=== PATIENT | male | born 1950 | race Caucasian/White ===

== ENCOUNTER 2016-12-26 06:29 | Day surgery (SDC) | payer MEDICARE, OTHER ==
[2016-12-23 12:10] VITALS: BMI 34.7
[~2016-12-26 06:29] MED LIST: ALPRAZolam 0.25 MG TAB PO PRN; ALPRAZolam 0.5 MG TAB PO PRN; ASPIRIN 325 MG TAB PO ONE; SODIUM CHLORIDE 0.9% 1,000 ML in EMPTY BAG 1 BAG IV ONE
[2016-12-26 07:16] VITALS: RESP 16; TEMP 98
[2016-12-26 07:28] LABS: Basophils # (A) 0.1 k/uL (0-0.2); Basophils % (A) 2 %; CH 32.3; CHCM 35.3; Eosinophils # (A) 0.3 k/uL (0-0.7); Eosinophils % (A) 7 %; HCT 44.6 % (39.0-53.0); HGB 15.2 gm/dL (13.0-17.5); Luc # (Auto) 0.18; Luc % (Auto) 4; Lymphocytes # (A) 1.3 k/uL (1.0-4.8); Lymphocytes % (A) 32 %; MCH 31.3 pg (25.0-35.0); Mean Platelet Volume 6.6; Monocytes # (A) 0.4 k/uL (0-1.0); Monocytes % (A) 8 %; Neutrophils % (A) 47 %; RBC 4.85 m/uL (4.30-5.90); RDW 14.2 % (11.5-15.5); WBC 4.3 k/uL (3.8-10.6)
[2016-12-26] MEDS ORDERED: MIDAZOLAM 2 MG/2 ML VIAL IVP ONE (07:32)
[2016-12-26] MEDS ORDERED: LIDOCAINE 2% INJ 20 MG/ML SQ ONE (07:35)
[2016-12-26] MEDS: VERAPAMIL SYRINGE (5 MG/10 ML) INTRAARTER ONE ×2 (07:37→07:50)
[2016-12-26] MEDS ORDERED: HEPARIN SODIUM 1,000 UNIT/ML VIAL IV ONE (07:38)
[2016-12-26] MEDS ORDERED: IOHEXOL 350 MG/ML 125ML BOTTLE INJ ONE (07:49)
[2016-12-26 07:51] LABS: Anion Gap 7 mmol/L; Blood Urea Nitrogen 23 mg/dL (9-20); Carbon Dioxide 27 mmol/L (22-30); Chloride 108 mmol/L (98-107); Glucose 101 mg/dL (74-99); Non-African American GFR(MDRD) >60 (>60 ml/min/1.73 sqM); Potassium 4.2 mmol/L (3.5-5.1); Sodium 142 mmol/L (137-145)
[2016-12-26] MEDS ORDERED: RX INFO: IV CONTRAST WAS GIVEN 1 EACH MISC MISCELLANE PRN (08:01)
[2016-12-26] MEDS ORDERED: SODIUM CHLORIDE 0.9% 1,000 ML IV SCH (08:15)
[2016-12-26 12:01] VITALS: BP 112/61; PULSE 62
--- NOTE | 2016-12-26 13:53 | LTR ---
December 26, 2016 RE: Soto Callahan Dear Mohsen; MrChristian Callahna underwent a heart catheterization that showed mild nonobstructive coronary artery disease involving the proximal right coronary artery. I want to thank you for allowing me to participate in his care and please do not hesitate to call if you have any questions or concerns. Sincerely, KISHOR RIOS MD
--- NOTE | 2016-12-26 13:55 | CC ---
DATE OF SERVICE: December 26, 2016 Performing physician: Mohsen Jaramillo fleecer. PROCEDURE PERFORMED: Selective right and left coronary angiogram. INDICATION: This is a very pleasant 60-year-old gentleman who sees Dr. Escamilla as an outpatient, who underwent recently a myocardial perfusion imaging stress test for chest discomfort and that showed inferolateral ischemia. He was brought today to undergo a heart catheterization to rule out any to rule out any severe underlying CAD. Approach: Right radial artery. COMPLICATIONS: None. Level of sedation: Moderate with sedation length of about 30 minutes. PROCEDURE DESCRIPTION: After obtaining an informed consent, the patient was brought to the cardiac chemical laboratory tester. Right radial artery was cannulated using micropuncture technique. The micropuncture wire passed easily, then I placed a 6 Nigerien sheath in the right radial artery. Subsequently, I gave the patient 2 mg of verapamil IA and 3000 units of heparin IV. After that, I did selective right and left coronary angiogram using JR4 and JL 3.5 catheters which where both catheters were 5 Nigerien. I attempted crossing the aortic valve using 5 Nigerien pigtail catheter but I was unable, so I decided not to continue at that point. SELECTIVE CORONARY ANGIOGRAM: 1. The right coronary artery is a large-caliber vessel and it is a dominant vessel. Right coronary artery in the proximal portion has mild disease only in the range of 20% to 30%. In the mid and distal portion are angiographically normal. 2. The left main is angiographically normal and bifurcates into the left circumflex and left anterior descending artery. 3. Left circumflex is a large-caliber vessel. It is a nondominant vessel. The proximal left circumflex is angiographically normal. The mid left circumflex is normal and gives rises into the first and second obtuse marginal branches and both are angiographically normal. Then the circ continues after that as ( ). 4. Left anterior descending artery. The proximal LAD appeared to be angiographically normal. The mid LAD and distal LAD are both are angiographically normal. The LAD gives rises into 2 diagonal branches; in the midportion and both are angiographically normal. CONCLUSION: Mild nonobstructive coronary artery disease involving the proximal right coronary artery. POSTPROCEDURE MANAGEMENT: Medical treatment.
== END 2016-12-26 13:08 | disposition home or self-care (01) ==
LOC: CATHCVL 06:29
PROVIDERS: ATTEND Internal Medicine Interventional Cardiology
DX: I25.10 Atherosclerotic heart disease of native coronary artery without angina pectoris (principal); I48.0 Paroxysmal atrial fibrillation; I10 Essential (primary) hypertension; E78.5 Hyperlipidemia, unspecified; Z79.01 Long term (current) use of anticoagulants; Z79.899 Other long term (current) drug therapy; Z82.49 Family history of ischemic heart disease and other diseases of the circulatory system; Z88.8 Allergy status to other drugs, medicaments and biological substances; Z87.891 Personal history of nicotine dependence
CPT/HCPCS: 93454; 99152; 80048; 85025; J2001; J2250; J1644; Q9967

== ENCOUNTER → 2017-01-08 | Outpatient (CLI) | payer MEDICARE ==
--- NOTE | 2017-01-08 17:36 | PN ---
DATE OF SERVICE: 01/08/2017 66-year-old gentleman who has been followed in the sleep center for treatment of obstructive sleep apnea-hypopnea syndrome in severe range. Patient continues to use his CPAP equipment without any significant problem with nasal pillow mask AirFit P10. Feels comfortable with this mask. No snoring with the machine. No problem with his sleep. [place] Sleepiness Scale today is 8. Presently, patient is on cardiac monitoring for possible returning of atrial fibrillation. Patient brought his CPAP unit. I checked CPAP machine. CPAP pressure is 12 cm of water. Patient demonstrated very good compliance with treatment 23 out of 30 more than 4 hours. Apnea-hypopnea index for the last month is only 1.0, which is totally normal, range. Leak is up to 29 L/min, which is in high range, but acceptable. MEDICATIONS: Metoprolol, losartan, atorvastatin, omeprazole, Mirapex, clonazepam 1 mg at bedtime, Ultram, Lidoderm, Xarelto, furosemide, fluoxetine, doxycycline. During physical exam, the patient in no distress. VITAL SIGNS: BP 114/62, HR 54, RR 16. Height 5 feet 8, weight 242, body mass index 36.7. Temperature 97.6. Oxygen saturation at room air 95%. HEENT: PERRLA, EOMI. Evaluation of oropharynx showed extremely low position of soft palate. NECK: Supple. No JVD, Thyroid is not palpable. LUNGS: Clear to percussion and to auscultation. Good air exchange. No wheezing or rhonchi. HEART: S1, S2 regular. No murmurs, gallops, or rubs. ABDOMEN: Slightly obese. Soft and nontender. Bowel sounds are present. No organomegaly appreciated. 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 Cranial nerves 2 to 7 intact. There is no fasciculation or atrophy noted. No focal deficits observed. EXTREMITIES: Minimal 1+ bilateral ankle edema. IMPRESSION: 1. Severe obstructive sleep apnea/hypopnea syndrome on control with CPAP at 12 cm of water. Patient demonstrated good compliance with treatment benefiting from treatment. 2. Obesity; body mass index 36.7. Patient lost about 7 pounds off his weight since previous visit. 3. History of atrial fibrillation status post cardiac ablation. 4. History of depression. 5. History of restless leg syndrome. 6. Status post uvulopalatopharyngoplasty and nasal surgery for obstructive sleep apnea. 7. Status post several surgeries for right and left shoulders. 8. Some fracture of right foot and torn meniscus in 2013. 9. Status post total left knee replacement surgery for right carpal tunnel syndrome. 10. Back surgery on level L3 to S1 with spinal stenosis. 11. Status post left carotid endarterectomy. PLAN: 1. Continue treatment with CPAP with the same regimen. 2. Patient should replace his headgear for his nasal pillow mask as often as possible. I would recommend not rarely than once per 4 months. 3. Continue losing weight. 4. Sleep hygiene with regular time in bed for at least 8 hours. 5. No driving if feeling any sleepiness. 6. Prescription for all necessary CPAP supplies. Thank you very much for allowing me to participate in the management of your patient. Sincerely, Isac Farfan MD, PhD, FAASM Diplomat of [place] [employer], Sleep Medicine Board by [place] [employer] [place] [employer] Data Manager of [facility] [place]
== END | disposition home or self-care (01) ==
LOC: SLEEP 14:02
PROVIDERS: ATTEND Internal Medicine
DX: G47.33 Obstructive sleep apnea (adult) (pediatric) (principal); E66.9 Obesity, unspecified; Z68.36 Body mass index [BMI] 36.0-36.9, adult; I48.91 Unspecified atrial fibrillation; F32.9 Major depressive disorder, single episode, unspecified; Z98.890 Other specified postprocedural states; Z79.899 Other long term (current) drug therapy; Z79.01 Long term (current) use of anticoagulants

== ENCOUNTER → 2017-11-10 | Outpatient (CLI) | payer MEDICARE, OTHER ==
--- NOTE | 2017-11-10 09:49 | CT ---
EXAMINATION TYPE: CT chest wo con DATE OF EXAM: 11/10/2017 COMPARISON: NONE HISTORY: Dyspnea CT DLP: 1324.00 mGycm High-resolution noncontrast CT of the chest was performed with the patient in the prone and supine po sitions. Lung and mediastinal window settings are submitted. The lungs appear to be well-aerated. I do not see evidence for fibrotic change. There is no eviden ce for bronchiectasis, groundglass infiltrate, nodule or mass. No pleural effusion is identified. I do not see evidence for hilar or mediastinal mass or adenopathy. IMPRESSION: No significant abnormality is seen. Correlate clinically.
== END | disposition home or self-care (01) ==
LOC: RADCTMAIN 08:18
PROVIDERS: ATTEND Internal Medicine Critical Care Medicine
DX: R06.09 Other forms of dyspnea (principal)
CPT/HCPCS: 71250

== ENCOUNTER 2019-04-29 11:16 | Emergency (ER) | payer MEDICARE, OTHER ==
[2019-04-29] MEDS ORDERED: SODIUM CHLORIDE 0.9% IRRIG 1,000 ML BTL IRRIGATION ONE (11:57)
[2019-04-29] MEDS ORDERED: DIPH,PERTUS(ACELL)TETVAC-LF 0.5 ML VIAL IM ONE (11:57)
[2019-04-29] MEDS ORDERED: LIDOCAINE 1% INJ 10MG/ML (20 ML MDV) SQ ONE (11:57)
--- NOTE | 2019-04-29 12:24 | XR ---
EXAMINATION TYPE: XR ankle complete LT DATE OF EXAM: 04/29/2019 COMPARISON: NONE HISTORY: 68-year-old male anterior laceration, rule out foreign body TECHNIQUE: 3 views FINDINGS: Ankle mortise is congruent. No acute fracture, subluxation, or dislocation. Anterior soft tissue swel ling is noted. Some subtle curvilinear density anterior to the distal tibia favored to represent vasc ular calcification. Small plantar calcaneal spur. IMPRESSION: 1. Anterior soft tissue swelling. Some subtle linear density just in front of the distal tibia is fav ored to represent vascular calcification. Some minimal radiodense debris is difficult to entirely exc lude. 2. No acute osseous abnormality seen.
[2019-04-29] MEDS ORDERED: WATER FOR IRRIG, STERILE 1,000 ML BTL IRRIGATION ONE (12:59)
--- NOTE | 2019-04-29 13:11 | ED ---
General Adult HPI - General Chief complaint: Wound/Laceration Stated complaint: Laceration Time Seen by Provider: 04/29/19 11:37 Source: patient, RN notes reviewed Mode of arrival: ambulatory Limitations: no limitations - History of Present Illness Initial comments: 68-year-old male presents to the emergency department for laceration of the left ankle. Patient states he was getting off his lawnmower when some shital and cut his leg. Denies any difficulty walking on the leg. Denies any other injuries. Patient is not up-to-date on tetanus.Patient has no other complaints at this time including shortness of breath, chest pain, abdominal pain, nausea or vomiting, headache, or visual changes. - Related Data Home Medications Medication Instructions Recorded Confirmed Ascorbic Acid [Vitamin C] 500 mg PO HS 01/25/15 12/26/16 Calcium Carbonate/Vitamin D3 1 each PO BID 01/25/15 12/26/16 [Calcium 600-Vit D3 400 Tablet] FLUoxetine HCL 20 mg PO DAILY 01/25/15 12/26/16 Folic Acid 1 tab PO HS 01/25/15 12/26/16 Furosemide [Lasix] 20 mg PO DAILY 01/25/15 12/26/16 Lidocaine [Lidoderm 5% Patch] 1 patch TOPICAL DAILY 01/25/15 12/26/16 Losartan [Cozaar] 50 mg PO DAILY 01/25/15 12/26/16 Metoprolol Tartrate 100 mg PO BID 01/25/15 12/26/16 Multivitamins, Thera [Multivitamin 1 each PO DAILY 01/25/15 12/26/16 (formulary)] Omeprazole 40 mg PO DAILY 01/25/15 12/26/16 Pramipexole Di-HCl [Mirapex] 1.5 mg PO 1200 01/25/15 12/26/16 Pramipexole Di-HCl [Mirapex] 1.5 mg PO HS 01/25/15 12/26/16 Rivaroxaban [Xarelto] 20 mg PO W/SUPPER 01/25/15 12/23/16 Simvastatin [Zocor] 20 mg PO HS 01/25/15 12/26/16 Vitamin E (Dl,Tocopheryl Acet) 400 unit PO HS 01/25/15 12/26/16 [Vitamin E] clonazePAM [KlonoPIN] 1 mg PO HS 01/25/15 12/26/16 Doxycycline Hyclate 100 mg PO DAILY 12/23/16 12/26/16 traMADol HCl [Ultram] 50 mg PO BID 12/23/16 12/26/16 Clotrimazole/Betameth Cream 1 applic TOPICAL BID PRN 12/26/16 12/26/16 [Lotrisone] Allergies Allergy/AdvReac Type Severity Reaction Status Date / Time clindamycin Allergy Rash/Hives Verified 04/29/19 11:29 warfarin sodium Allergy Rash/Hives Verified 04/29/19 11:29 [From Coumadin] tape Allergy blister Uncoded 12/23/16 11:48 tegaderm Allergy blister Uncoded 12/23/16 11:48 Review of Systems ROS Statement: Those systems with pertinent positive or pertinent negative responses have been documented in the HPI. ROS Other: All systems not noted in ROS Statement are negative. Past Medical History Past Medical History: Atrial Fibrillation, CVA/TIA, GERD/Reflux, Hyperlipidemia, Hypertension, Osteoarthritis (OA), Sleep Apnea/CPAP/BIPAP Additional Past Medical History / Comment(s): TIA, can not lift hands up over head due to mult shoulder surgeries. History of Any Multi-Drug Resistant Organisms: MRSA Date of last positivie culture/infection: 07/14/14 MDRO Source:: rt shoulder Past Surgical History: Back Surgery, Cardiac Ablation, Joint Replacement, Orthopedic Surgery Additional Past Surgical History / Comment(s): Left knee replacement, bilateral knee arthroscopy, bilateral shoulder surgeries (total 25), jericho in back. Past Anesthesia/Blood Transfusion Reactions: No Reported Reaction Past Psychological History: No Psychological Hx Reported Smoking Status: Former smoker Past Alcohol Use History: None Reported Past Drug Use History: None Reported - Past Family History Mother Family Medical History: No Reported History General Exam Limitations: no limitations General appearance: alert, in no apparent distress Head exam: Present: atraumatic, normocephalic, normal inspection Eye exam: Present: normal appearance, PERRL, EOMI. Absent: scleral icterus, conjunctival injection, periorbital swelling ENT exam: Present: normal exam, mucous membranes moist Neck exam: Present: normal inspection, full ROM. Absent: tenderness, meningismus, lymphadenopathy Respiratory exam: Present: normal lung sounds bilaterally. Absent: respiratory distress, wheezes, rales, rhonchi, stridor Cardiovascular Exam: Present: regular rate, normal rhythm, normal heart sounds. Absent: systolic murmur, diastolic murmur, rubs, gallop, clicks Extremities exam: Present: full ROM (Full range motion of the left ankle.), normal capillary refill (Capillary very refill less than 2 seconds, DP pulse 2+ left lower extremity.), other (Sensation intact in the left lower extremity. Patient has a 2 cm laceration noted to the medial aspect of the left lower leg proximal to the malleolus.). Absent: tenderness, pedal edema, joint swelling, calf tenderness Course Vital Signs 04/29/19 11:29 Temperature 97.9 F Pulse Rate 57 L Respiratory 18 Rate Blood Pressure 112/70 O2 Sat by Pulse 98 Oximetry Procedures - Laceration Laceration #1 Consent Obtained: verbal consent Indication: laceration Site: lower extremity Size (cm): 2 Description: linear Depth: simple, single layer Anesthetic Used: lidocaine 1% Anesthesia Technique: local infiltration Amount (mls): 4 Pre-repair: wound explored, irrigated extensively (With sterile water and then with pressure saline irrigation), deep structures intact Type of Sutures: other (Ethilon) Size of Sutures: 5-0 Number of Sutures: 4 Technique: simple, interrupted Patient Tolerated Procedure: well, no complications Medical Decision Making - Medical Decision Making 68-year-old male presents for laceration to the left lower extremity. Patient was getting off his lawnmower when scissors cut his leg. Tetanus was updated here in the emergency department. On exam patient is a 2 cm linear laceration. This was irrigated thoroughly as documented. X-ray does show anterior soft tissue swelling with subtle linear density just in front of the distal tibia fever to represent vascular calcification. This is not evident on physical exam. Currently no concern for foreign body. Because this finding with patient and patient will follow up with primary care. He is on doxycycline daily for MRSA infection prevention. Patient educated to monitor for signs infection and will keep wound clean. Dressing was applied. He will return in 7-10 days or earlier if he has any worsening symptoms. Otherwise he will follow-up with primary care. Disposition Clinical Impression: Laceration Disposition: HOME SELF-CARE Condition: Good Instructions (If sedation given, give patient instructions): Laceration (ED), C are For Your Stitches (ED) Additional Instructions: Please keep area clean. Monitor for signs of infection such as spreading or streaking redness, drainage, fever and return if these occur. Return in 7-10 days for suture removal. Otherwise follow-up with primary care. Is patient prescribed a controlled substance at d/c from ED?: No Referrals: Mohsen Escamilla MD [Primary Care Provider] - 1-2 days Time of Disposition: 13:10
[2019-04-29 13:35] VITALS: BP 122/89; PULSE 61; RESP 17; TEMP 97
== END 2019-04-29 13:35 | disposition home or self-care (01) ==
LOC: EC 11:16
DX: S91.012A Laceration without foreign body, left ankle, initial encounter (principal); I48.91 Unspecified atrial fibrillation; K21.9 Gastro-esophageal reflux disease without esophagitis; E78.5 Hyperlipidemia, unspecified; I10 Essential (primary) hypertension; M19.90 Unspecified osteoarthritis, unspecified site; G47.30 Sleep apnea, unspecified; Z87.891 Personal history of nicotine dependence; Z88.1 Allergy status to other antibiotic agents; Z88.8 Allergy status to other drugs, medicaments and biological substances; Z91.048 Other nonmedicinal substance allergy status; Z79.01 Long term (current) use of anticoagulants; Z79.891 Long term (current) use of opiate analgesic; Z79.899 Other long term (current) drug therapy; Z86.14 Personal history of Methicillin resistant Staphylococcus aureus infection; Z86.73 Personal history of transient ischemic attack (TIA), and cerebral infarction without residual deficits; Z96.652 Presence of left artificial knee joint; Z98.890 Other specified postprocedural states; Z99.89 Dependence on other enabling machines and devices; Z23 Encounter for immunization; W26.8XXA Contact with other sharp object(s), not elsewhere classified, initial encounter; Y93.89 Activity, other specified
CPT/HCPCS: 73610; 90715; 99283; 12001; 90471; J2001

== ENCOUNTER → 2019-11-09 | Outpatient (CLI) | payer MEDICARE, OTHER ==
--- NOTE | 2019-11-09 15:37 | PN ---
PROGRESS NOTE DATE OF SERVICE: 11/09/2019 [id number] gentleman had been followed in the Sleep Center for treatment of obstructive sleep apnea/hypopnea syndrome. The patient continued to use his CPAP equipment every night; sometimes feels that pressure is not enough for him. Otherwise, everything works well. [place] Sleepiness Scale today is 8, which is normal. I checked his CPAP unit. CPAP pressure is 12 cm of water. The patient is using it 30 out of 30 nights and 27 out of 30 nights for more than 4 hours for the last month; and for the whole year, he used it 350 nights and 306 nights more than 4 hours. His leak for the whole year every sleep is 4-6 liters per minute. Apnea-hypopnea index for the year averaged only 2.0. MEDICATIONS: Metoprolol, omeprazole, Mirapex, clonazepam, Xarelto, Furosemide, doxycycline, cyclobenzaprine, Ultram, vitamins, calcium, and folic acid supplements. PHYSICAL EXAM: GENERAL: During physical exam, patient in no distress. VITAL SIGNS: Blood pressure 105/71, heart rate 75, respiratory rate 16, height 5 feet 7-1/2 inches, weight 243.4 pounds, temperature 98.0, oxygen saturation on room air 96%. HEENT: PERRLA, EOMI. Oropharynx: Low position of soft palate, Mallampati 4. NECK: Supple, no JVD. Thyroid is not palpable. LUNGS: Clear to percussion and to auscultation. Good air exchange. No wheezing or rhonchi. HEART: S1, S2 regular. No murmurs, gallops, or rubs. ABDOMEN: Obese, soft, and nontender. Bowel sounds are present. No organomegaly appreciated. EXTREMITIES: No clubbing or cyanosis. PATENT DRAFTER: Awake, alert, and oriented X3. Cranial nerves 2 to 7 intact. There is no fasciculation or atrophy. noted. No focal deficits observed. IMPRESSION: 1. Severe obstructive sleep apnea/hypopnea syndrome. Patient demonstrating good compliance with treatment, benefitting from treatment. High leak reading. 2. Obesity. 3. History of atrial fibrillation, status post cardiac ablation. No recent episodes of atrial fibrillation. 4. History of depression. 5. History of restless legs syndrome. 6. Status post UPPP (uvulopalatopharyngoplasty) and nasal surgery for obstructive sleep apnea. 7. Status post several surgeries for right and left shoulders. 8. Status post total left knee replacement. 9. Status post surgery for right carpal tunnel syndrome. 10.Status post back surgery on L3-S1 level, spinal stenosis. 11.Status post left carotid endarterectomy. PLAN: 1. The patient will continue to use CPAP equipment every night for the whole night and use the same pressure. 2. Prescription for chin strap. 3. Losing weight. 4. Sleep hygiene with regular time in bed for at least 7-1/2 to 8 hours. 5. No driving if feeling any sleepiness. Thank you very much for allowing me to participate in the management of your patient. Sincerely, Isac Farfan MD, PhD, FAASM Diplomat of [place] [employer] [place] [employer] Riveter of [facility] [place] MMODL / KANUN: [phone] /
== END | disposition home or self-care (01) ==
LOC: SLEEP 13:15
PROVIDERS: ATTEND Internal Medicine
DX: G47.33 Obstructive sleep apnea (adult) (pediatric) (principal); E66.9 Obesity, unspecified; Z86.79 Personal history of other diseases of the circulatory system; Z86.59 Personal history of other mental and behavioral disorders; Z86.69 Personal history of other diseases of the nervous system and sense organs; Z96.652 Presence of left artificial knee joint; Z98.890 Other specified postprocedural states; Z99.89 Dependence on other enabling machines and devices; Z79.01 Long term (current) use of anticoagulants; Z79.2 Long term (current) use of antibiotics; Z79.891 Long term (current) use of opiate analgesic; Z79.899 Other long term (current) drug therapy

== ENCOUNTER 2020-01-25 10:00 | Emergency (ER) | payer MEDICARE, OTHER ==
[2020-01-25 10:06] VITALS: RESP 18; TEMP 98
--- NOTE | 2020-01-25 10:47 | XR ---
EXAMINATION TYPE: XR ribs LT w pa chest xray DATE OF EXAM: 01/25/2020 CLINICAL HISTORY: Chest and left-sided rib pain after fall injury. TECHNIQUE: Single frontal view of the chest is obtained. A frontal and oblique images the left-sided ribs. COMPARISON: Chest x-ray November 02, 2017. CT chest November 10, 2017. FINDINGS: There is chronic parenchymal changes bilaterally without suspicious new focal air space op acity, pleural effusion, or pneumothorax seen. Somewhat low lung volumes redemonstrated. The cardiac silhouette size is stable and upper limits of normal. Redemonstration of partial visualization of ri ght humeral implant or surgical change with advanced degenerative changes right glenohumeral joint. D eformity left shoulder partially imaged with rounded densities near joint space redemonstrated simila r to prior. Dedicated images of left-sided ribs show no acute displaced fracture. Partial visualization of surgic al change mid to lower lumbar spine noted. IMPRESSION: 1. Chronic changes without acute pulmonary process. 2. No acute displaced left-sided rib fractures seen.
--- NOTE | 2020-01-25 11:27 | ED ---
Fall HPI - General Chief Complaint: Fall Stated Complaint: Fall/poss cracked ribs Time Seen by Provider: 01/25/20 10:09 Source: patient Mode of arrival: ambulatory - History of Present Illness Initial Comments: Patient is a 69-year-old male presenting to the emergency Department with complaints of left-sided rib pain times one week. Patient states he had a fall approximately one week ago where he landed on a shovel. Patient states since then he has been having persistent left sided rib pain that increases with torso rotation. Patient denies hitting his head or any other injuries from this fall. He denies shortness of breath, trouble breathing, chest pain. He has no other complaints at this time. - Related Data Home Medications Medication Instructions Recorded Confirmed Ascorbic Acid [Vitamin C] 500 mg PO HS 01/25/15 12/26/16 Calcium Carbonate/Vitamin D3 1 each PO BID 01/25/15 12/26/16 [Calcium 600-Vit D3 400 Tablet] FLUoxetine HCL 20 mg PO DAILY 01/25/15 12/26/16 Folic Acid 1 tab PO HS 01/25/15 12/26/16 Furosemide [Lasix] 20 mg PO DAILY 01/25/15 12/26/16 Lidocaine [Lidoderm 5% Patch] 1 patch TOPICAL DAILY 01/25/15 12/26/16 Losartan [Cozaar] 50 mg PO DAILY 01/25/15 12/26/16 Metoprolol Tartrate 100 mg PO BID 01/25/15 12/26/16 Multivitamins, Thera [Multivitamin 1 each PO DAILY 01/25/15 12/26/16 (formulary)] Omeprazole 40 mg PO DAILY 01/25/15 12/26/16 Pramipexole Di-HCl [Mirapex] 1.5 mg PO 1200 01/25/15 12/26/16 Pramipexole Di-HCl [Mirapex] 1.5 mg PO HS 01/25/15 12/26/16 Rivaroxaban [Xarelto] 20 mg PO W/SUPPER 01/25/15 12/23/16 Simvastatin [Zocor] 20 mg PO HS 01/25/15 12/26/16 Vitamin E (Dl,Tocopheryl Acet) 400 unit PO HS 01/25/15 12/26/16 [Vitamin E] clonazePAM [KlonoPIN] 1 mg PO HS 01/25/15 12/26/16 Doxycycline Hyclate 100 mg PO DAILY 12/23/16 12/26/16 traMADol HCl [Ultram] 50 mg PO BID 12/23/16 12/26/16 Clotrimazole/Betameth Cream 1 applic TOPICAL BID PRN 12/26/16 12/26/16 [Lotrisone] Allergies Allergy/AdvReac Type Severity Reaction Status Date / Time clindamycin Allergy Rash/Hives Verified 01/25/20 10:06 warfarin sodium Allergy Rash/Hives Verified 01/25/20 10:06 [From Coumadin] tape Allergy blister Uncoded 01/25/20 10:06 tegaderm Allergy blister Uncoded 01/25/20 10:06 Review of Systems ROS Statement: Those systems with pertinent positive or pertinent negative responses have been documented in the HPI. ROS Other: All systems not noted in ROS Statement are negative. Past Medical History Past Medical History: Atrial Fibrillation, CVA/TIA, GERD/Reflux, Hyperlipidemia, Hypertension, Osteoarthritis (OA), Sleep Apnea/CPAP/BIPAP Additional Past Medical History / Comment(s): TIA History of Any Multi-Drug Resistant Organisms: MRSA Date of last positivie culture/infection: 07/14/14 MDRO Source:: rt shoulder Past Surgical History: Back Surgery, Cardiac Ablation, Joint Replacement, Orthopedic Surgery Additional Past Surgical History / Comment(s): Left knee replacement, bilateral knee arthroscopy, bilateral shoulder surgeries (total 25), jericho in back. Past Anesthesia/Blood Transfusion Reactions: No Reported Reaction Past Psychological History: No Psychological Hx Reported Smoking Status: Former smoker Past Alcohol Use History: None Reported Past Drug Use History: None Reported - Past Family History Mother Family Medical History: No Reported History General Exam - General Exam Comments Initial Comments: GENERAL: Well-appearing, well-nourished and in no acute distress. HEAD: Atraumatic, normocephalic. EYES: Pupils equal round and reactive to light, extraocular movements intact, sclera anicteric, conjunctiva are normal. ENT: TMs normal, nares patent, oropharynx clear without exudates. Moist mucous membranes. NECK: Normal range of motion, supple without lymphadenopathy or JVD. LUNGS: Breath sounds clear to auscultation bilaterally and equal. No wheezes rales or rhonchi. Mild pain with palpation of the lateral aspect of the left ribs. HEART: Regular rate and rhythm without murmurs, rubs or gallops. ABDOMEN: Soft, nontender, normoactive bowel sounds. No guarding, no rebound. No masses appreciated. : Deferred EXTREMITIES: Normal range of motion, no pitting or edema. No clubbing or cyanosis. NEUROLOGICAL: Cranial nerves II through XII grossly intact. Normal speech, normal gait. PSYCH: Normal mood, normal affect. SKIN: Warm, Dry, normal turgor, no rashes or lesions noted. Limitations: no limitations Course Vital Signs 01/25/20 01/25/20 10:01 11:43 Temperature 98 F Pulse Rate 71 70 Respiratory 18 18 Rate Blood Pressure 137/72 128/78 O2 Sat by Pulse 97 98 Oximetry Medical Decision Making - Medical Decision Making Patient is a 69-year-old male presenting with left-sided rib pain after fall 1 week ago. Patient's vitals are stable, he denies shortness of breath. X-rays reveal no acute fractures. Discussed with patient is most likely a rib contusion. He can continue with Tylenol Motrin for pain as well as heat to the area. He is in agreement with this plan of care. Patient will follow up with PCP if symptoms persist. Case discussed with Dr. Iverson. Disposition Clinical Impression: Fall, Contusion of rib on left side Disposition: HOME SELF-CARE Condition: Stable Instructions (If sedation given, give patient instructions): Rib Contusion (ED) Additional Instructions: Please return to the Emergency Department if symptoms worsen or any other concerns. Use heat and/or ice to the area as well as anti-inflammatory for pain. Follow-up with PCP as symptoms persist 2-3 weeks. Is patient prescribed a controlled substance at d/c from ED?: No Referrals: Mohsen Escamilla MD [Primary Care Provider] - 1-2 days
[2020-01-25 11:44] VITALS: BP 128/78; PULSE 70
== END 2020-01-25 11:43 | disposition home or self-care (01) ==
LOC: EC 10:00
DX: S20.212A Contusion of left front wall of thorax, initial encounter (principal); I48.91 Unspecified atrial fibrillation; K21.9 Gastro-esophageal reflux disease without esophagitis; E78.5 Hyperlipidemia, unspecified; I10 Essential (primary) hypertension; M19.90 Unspecified osteoarthritis, unspecified site; G47.30 Sleep apnea, unspecified; Z79.01 Long term (current) use of anticoagulants; Z79.899 Other long term (current) drug therapy; Z79.891 Long term (current) use of opiate analgesic; Z87.891 Personal history of nicotine dependence; Z88.1 Allergy status to other antibiotic agents; Z88.8 Allergy status to other drugs, medicaments and biological substances; Z91.048 Other nonmedicinal substance allergy status; Z99.89 Dependence on other enabling machines and devices; Z86.73 Personal history of transient ischemic attack (TIA), and cerebral infarction without residual deficits; Z96.651 Presence of right artificial knee joint; Z86.14 Personal history of Methicillin resistant Staphylococcus aureus infection; W01.0XXA Fall on same level from slipping, tripping and stumbling without subsequent striking against object, initial encounter; Y92.89 Other specified places as the place of occurrence of the external cause
CPT/HCPCS: 99283

== ENCOUNTER → 2020-07-19 | Outpatient (CLI) | payer MEDICARE, OTHER ==
--- NOTE | 2020-07-19 19:02 | SFUN ---
SLEEP CENTER FOLLOW UP NOTE DATE OF SERVICE: 07/19/2020 This patient is a 69-year-old gentleman who has been followed in the sleep center for treatment of obstructive sleep apnea-hypopnea syndrome. Recently the patient received a new CPAP unit. He is using it successfully every night. Some of the nights his hears a noise of a possible leak of air from the machine. The patient will let me know recording of the sound at night. It sounds like an air leak. Gibbon Sleepiness Scale today is 12. I checked the patient's CPAP unit. CPAP pressure is 12 cm of water. Usage is every night, and 24/30 nights for more than 4 hours. Average 5.2 hours per night. Leak is very high at 55 L/minute. The patient is using nasal pillows. Apnea-hypopnea index is in normal range at 4.7. MEDICATIONS: Metoprolol, omeprazole, Mirapex, clonazepam, Xarelto, furosemide, doxycycline, cyclobenzaprine, Ultram, vitamins. PHYSICAL EXAMINATION: GENERAL: A pleasant patient in no distress. VITAL SIGNS: BP 129/62, HR 62, RR 15, weight 239.4, temperature 98.0, oxygen saturation at room air 97%. HEENT: PERRLA, EOMI. Evaluation of oropharynx showed tongue protrudes midline. Extremely low position of soft palate. Mallampati IV. NECK: Supple. No JVD. Thyroid is not palpable. LUNGS: Clear to percussion and to auscultation. Good air exchange. No wheezing or rhonchi. HEART: S1, S2 regular. No murmurs, gallops or rubs. ABDOMEN: Slightly obese. EXTREMITIES: No clubbing or cyanosis. 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 Cranial nerves 2 to 7 intact. There is no fasciculation or atrophy. noted. No focal deficits observed. IMPRESSION: 1. Severe obstructive sleep apnea-hypopnea syndrome. Patient demonstrated great compliance with treatment, benefitting from treatment. 2. Significant leak, possibly related to open mouth. 3. History of atrial fibrillation, status post cardiac ablation. No recent episodes of atrial fibrillation. 4. Obesity. 5. History of depression. 6. History of restless legs syndrome. 7. Status post UPPP and nasal surgery for obstructive sleep apnea. 8. Status post several surgeries for shoulders on both sides. 9. Status post left knee replacement. 10.Status post surgery for right carpal tunnel syndrome. 11.Status post back surgery, L3-S1 level. 12.Status post left carotid endarterectomy. PLAN: 1. Patient will continue to use PAP equipment every night for the whole night. 2. Sleep hygiene with regular time in bed for at least 7-1/2 to 8 hours. 3. Precautions related to driving. No driving if feeling sleepiness. 4. I will maintain all necessary prescription for PAP supplies including mask, tube, filters. 5. Watching weight. 6. No driving if feeling sleepiness. 7. Follow-up visit in 6 months or earlier if patient has any problems. 8. Prescription for chin strap for possible opening mouth. 9. Replace the hose. Thank you very much for allowing me to participate in the management of your patient. Sincerely, Isac Farfan MD, PhD, FAASM Diplomat of [employer]ak[employer] T[employer] [facility] MMODL / IJN: [id number] /
== END | disposition home or self-care (01) ==
LOC: SLEEP 11:21
PROVIDERS: ATTEND Internal Medicine
DX: G47.33 Obstructive sleep apnea (adult) (pediatric) (principal); I48.91 Unspecified atrial fibrillation; Z86.59 Personal history of other mental and behavioral disorders; E66.9 Obesity, unspecified; Z96.652 Presence of left artificial knee joint; Z98.890 Other specified postprocedural states; Z87.39 Personal history of other diseases of the musculoskeletal system and connective tissue; Z79.899 Other long term (current) drug therapy; Z79.891 Long term (current) use of opiate analgesic; Z79.01 Long term (current) use of anticoagulants; Z79.2 Long term (current) use of antibiotics; Z99.89 Dependence on other enabling machines and devices

== ENCOUNTER → 2021-04-01 | Outpatient (CLI) | payer MEDICARE, OTHER ==
[2021-04-01 14:37] LABS: Basophils # (A) 0.1 k/uL (0-0.2); Basophils % (A) 1 %; Eosinophils # (A) 0.3 k/uL (0-0.7); Eosinophils % (A) 6 %; HCT 44.7 % (39.0-53.0); HGB 15.6 gm/dL (13.0-17.5); Lymphocytes # (A) 1.4 k/uL (1.0-4.8); Lymphocytes % (A) 29 %; MCH 32.8 pg (25.0-35.0); MCHC 34.9 g/dL (31.0-37.0); MCV 94.1 fL (80.0-100.0); Mean Platelet Volume 7.7; Monocytes # (A) 0.3 k/uL (0-1.0); Monocytes % (A) 6 %; Neutrophils # (A) 2.8 k/uL (1.3-7.7); Neutrophils % (A) 56 %; Platelet Count 154 k/uL (150-450); RBC 4.75 m/uL (4.30-5.90); RDW 13.4 % (11.5-15.5); WBC 4.9 k/uL (3.8-10.6)
[2021-04-01 14:48] LABS: Appearance,Urine Clear (Clear); Bilirubin,Urine Negative (Negative); Blood,Urine Negative (Negative); Color,Urine Yellow; Glucose,Urine (UA) Negative (Negative); Ketones,Urine Negative (Negative); Leukocyte Esterase,Urine Negative (Negative); Nitrite,Urine Negative (Negative); PH, Urine 6.5 (5.0-8.0); Protein,Urine Negative (Negative); Specific Gravity,Urine 1.022 (1.001-1.035); Urobilinogen,Urine <2.0 mg/dL (<2.0)
[2021-04-01 14:51] LABS: African American GFR (CKD) >90 (>60 ml/min/1.73 sqM); Anion Gap 7 mmol/L; Blood Urea Nitrogen 17 mg/dL (9-20); Calcium 8.9 mg/dL (8.4-10.2); Carbon Dioxide 24 mmol/L (22-30); Chloride 109 mmol/L (98-107); Glucose 124 mg/dL (74-99); Non-African American GFR(CKD) 83 (>60 ml/min/1.73 sqM); Partial Thromboplastin Time 26.3 sec (22.0-30.0); Potassium 3.9 mmol/L (3.5-5.1); Prothrombin Time 10.8 sec (9.0-12.0); Sodium 140 mmol/L (137-145)
--- NOTE | 2021-04-01 18:00 | XR ---
EXAMINATION TYPE: XR chest 2V DATE OF EXAM: 04/01/2021 COMPARISON: 01/25/2020 HISTORY: 70-year-old male cervical myelopathy preoperative evaluation TECHNIQUE: AP and lateral views FINDINGS: Heart limits of normal in size. Interstitial prominence is a chronic appearance. Strandy areas of ate lectasis in the lower lungs. No brooks consolidation or pleural effusion. There are cement pellets int erposed at the destroyed left shoulder joint. Cement arthroplasty right shoulder as well. Findings ar e only partially visualized. IMPRESSION: 1. Chronic appearing changes. No definite acute process. 2. 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
== END | disposition home or self-care (01) ==
LOC: LABPAT 13:45
PROVIDERS: ATTEND Orthopaedic Surgery Orthopaedic Surgery of the Spine
DX: Z01.818 Encounter for other preprocedural examination (principal); M50.00 Cervical disc disorder with myelopathy, unspecified cervical region; J98.4 Other disorders of lung
CPT/HCPCS: 36415; 71046; 80048; 81003; 85025; 85610; 85730; 93005

== ENCOUNTER 2021-04-10 06:12 | Day surgery (SDC) | payer MEDICARE, OTHER ==
[2021-04-05 15:39] VITALS: BMI 36.1
[~2021-04-10 06:12] MED LIST changes: -ALPRAZolam 0.25 MG TAB PO PRN; -ALPRAZolam 0.5 MG TAB PO PRN; -ASPIRIN 325 MG TAB PO ONE; +DEXAMETHASONE SOD PHOSPHATE 4 MG/ML 1 ML VIAL IV ONE; +LACTATED RINGERS 1,000 ML IV SCH; +MIDAZOLAM 2 MG/2 ML VIAL IV PRN; +ONDANSETRON 4 MG/2 ML VIAL IVP ONE; -SODIUM CHLORIDE 0.9% 1,000 ML in EMPTY BAG 1 BAG IV ONE; +ceFAZolin 1,000 MG in SODIUM CHLORIDE 0.9% IRRIGATIO 1,000 ML IRRIGATION PRN
[2021-04-10] MEDS ORDERED: HYDROmorphone 0.5 MG/0.5 ML SYRINGE IVP PRN ×2 (07:00→09:35)
[2021-04-10] MEDS ORDERED: LIDOCAINE 1% (10MG/ML) FOR IV START INTRADERMA ONE (07:10)
[2021-04-10] MEDS ORDERED: KETAMINE 10 MG/ML 20 ML VIAL ONE (07:27)
[2021-04-10] MEDS ORDERED: SUCCINYLCHOLINE CHLORIDE 100 MG/5 ML SYR IV ONE (07:27)
[2021-04-10] MEDS ORDERED: ROCURONIUM 10 MG/ML (5 ML VIAL) IV ONE (07:27)
[2021-04-10] MEDS ORDERED: LIDOCAINE 1% INJ 10MG/ML (20 ML MDV) ONE (07:27)
[2021-04-10] MEDS ORDERED: MIDAZOLAM 2 MG/2 ML VIAL ONE (07:27)
[2021-04-10] MEDS ORDERED: NEOSTIGMINE 1 MG/ML 10 ML VIAL ONE (07:27)
[2021-04-10] MEDS ORDERED: fentaNYL (PF) 50 MCG/ML 2 ML AMP ONE (07:27)
[2021-04-10] MEDS ORDERED: DEXAMETHASONE SOD PHOSPHATE 10 MG/ML 1 ML VIAL ONE (07:27)
[2021-04-10] MEDS ORDERED: GLYCOPYRROLATE 0.2 MG/ML 2 ML VIAL ONE (07:27)
[2021-04-10] MEDS ORDERED: PROPOFOL 10 MG/ML 20 ML VIAL IV ONE (07:27)
[2021-04-10] MEDS ORDERED: THROMBIN (BOVINE) 5,000 UNIT VIAL TOPICAL ONE (07:30)
[2021-04-10] MEDS ORDERED: LIDOCAINE 0.5%-EPI 1:200,000 50 ML VIAL SQ ONE (07:30)
[2021-04-10] MEDS ORDERED: GELATIN SPONGE,ABSORB (LARGE) 1 EACH SPONGE TOPICAL ONE (07:30)
[2021-04-10] MEDS ORDERED: HYDROmorphone 1 MG/ML 1 ML SYRINGE IVP PRN (09:35)
[2021-04-10] MEDS ORDERED: BENZOCAINE/MENTHOL LOZENG 1 EACH LOZENGE MUCOUS MEM PRN (09:35)
[2021-04-10] MEDS ORDERED: HYDROcodone/APAP 5-325MG 1 EACH TAB PO PRN (09:35)
[2021-04-10] MEDS ORDERED: ACETAMINOPHEN TAB 325 MG TAB PO PRN (09:36)
[2021-04-10] MEDS ORDERED: CYCLOBENZAPRINE 10 MG TAB PO PRN (09:36)
--- NOTE | 2021-04-10 09:43 | P.OP ---
Date of Procedure: 04/10/21 Preoperative Diagnosis: Severe cervical stenosis C5 6 C6 7, disc herniation C5 6 C6 7, degenerative disc disease C5 6 C6 7, upper extremity radiculopathy, upper extremity weakness Postoperative Diagnosis: Severe cervical stenosis C5 6 C6 7, disc herniation C5 6 C6 7, degenerative disc disease C5 6 C6 7, upper extremity radiculopathy, upper extremity weakness Anesthesia: GETA Pathology: none sent Condition: stable Disposition: PACU Description of Procedure: BRIEF OPERATIVE NOTE Preoperative Diagnosis:Severe cervical stenosis C5 6 C6 7, disc herniation C5 6 C6 7, degenerative disc disease C5 6 C6 7, upper extremity radiculopathy, upper extremity weakness Postoperative Diagnosis:Severe cervical stenosis C5 6 C6 7, disc herniation C5 6 C6 7, degenerative disc disease C5 6 C6 7, upper extremity radiculopathy, upper extremity weakness Procedure: Anterior cervical decompression with discectomy and fusion C5 6 C6 7 Placement of interbody graft C5 6 C6 7 Application of anterior cervical plate C5 6 and 7 Surgeon: Dr. Blanca Loaf Counter: Dwayne VALIENTE who is present throughout the entire the case persistence during positioning, dissection, exposure, visualization, and all crucial elements of the case as well as closure. Anesthesia: General anesthesia Estimated blood loss: Approximately 50 mL Complications: None apparent Components implanted: K2M [place] anterior cervical plate system with Vikos interbody allograft bone graft and 1 mL of DBX bone putty Disposition: To recovery room in good stable condition. OPERATIVE INDICATIONS The patient has had long-standing issues in their neck and upper extremities. Patient has been having worsening of his neck and upper extremity symptoms with radiculopathy and some weakness at his upper extremities bilaterally. He does not have severe stenosis at his cervical spine with evidence of disc herniation which correlate well with his symptoms and worsening troubles at his neck and upper extremity is. The patient has been through conservative treatment. He is not having any prolonged benefit despite aggressive conservative care. We discussed various treatment options including surgery, and the patient wishes to proceed with surgery We discussed the risk, patient's alternatives and benefits of surgery including but not limited to, risk of bleeding risk of infection, risk of need for further surgery, risk of decreased, loss of motion, muscle function, malunion nonunion, hardware failure, nerve damage, paralysis, heart attack, and . OPERATIVE SUMMARY After discussing all the risks, patient alternatives and benefits at length, the patient elected to proceed with surgical intervention, signed informed consent, and presented for their procedure. The patient was seen and examined in the preoperative holding area and the surgical site was marked. The patient was given antibiotics and brought to the operating room. The patient was positioned on the operating room table in a supine position being careful to pad any bony prominences and pressure points. The patient was sedated and intubated by anesthesia in standard fashion. Once the airway and C- spine were stabilized the patient's arms were padded and tucked at her side, with her shoulders gently taped. The head was placed in a donut pad with the neck in good neutral alignment and position. We were careful to maintain the patient's cervical spine and good neutral alignment and position throughout. The patient was prepped and draped in a normal standard fashion. An appropriate timeout and keystone protocol performed. We were able to proceed with the surgery. The local wound area was infiltrated with local anesthetic. An incision was made transversely approximately 2-1/2 cm over the appropriate levels at C6. Dissection was taken down subcutaneously to the level of the platysma which was split in line with its fibers. Dissection was taken with a carotid approach, with the trachea and esophagus medial and the carotid sheath laterally. We dissected down to the anterior surface of the vertebral bodies. Intraoperative x-ray was taken which showed a marker at the appropriate level at C5 6. With the appropriate level positively confirmed, we were able to proceed with discectomy at the appropriate levels. All of the operative levels were exposed appropriately. The patient had all their twitches back, and there was no evidence of recurrent laryngeal issue. The wound was copiously irrigated and suctioned dry as had been done periodically throughout the case. At the appropriate level/levels, starting at C6 7 in moving the C5 6 I established an annulotomy with an 11 blade scalpel. A discectomy was performed with a combination of pituitary rongeurs, curettes, a high-speed bur, and Kerrison rongeurs. Note was made of severe disc degeneration and near complete disc height loss at each of the levels. The posterior longitudinal ligament was taken down as were any posterior osteophytes. There were large posterior osteophytes which were taken down as well as thickened posterior longitudinal ligament and the disc herniation which was all removed. This gave good central and bilateral foraminal decompression. There is no evidence of any dural tear or leak. The endplates were prepared with a high-speed bur. With the endplates in good parallel position, I was able to size for the appropriate size interbody graft. The wound was irrigated and suctioned dry the graft was prepared and malleted into position. It had good alignment and position with the anterior surface flush with the anterior surface of the vertebral bodies. This was done similarly the appropriate levels first at C6 7 and then at C5 6. With the grafts intact, I was able to measure and contour and appropriate sized plate. The plate was positioned at the midline over the appropriate levels at C5 6 and 7. Screw holes were established with a hand drill and drill guide. Screws were placed in good alignment and position with excellent bony purchase. They were seated under the locking device. The construct was checked and found to be stable. Intraoperative x-ray was taken which showed good alignment and position of the implants at the appropriate levels. There was no evidence of any dural tear or leak. Good hemostasis was maintained. The wound was copiously irrigated and suctioned dry as had been done periodically throughout the case. The platysma was closed with absorbable suture. The subcutaneous tissue was closed. The subcuticular tissue was closed with absorbable suture. The wound was cleaned and dried and dressed appropriately. A soft cervical collar was placed appropriately. The patient was woken up by anesthesia, extubated, transferred back gently to their hospital bed and brought to the recovery room in good stable condition. The patient will be admitted to the hospital for appropriate postoperative care, medical management and monitoring. We will continue to follow them closely about the postoperative course.
--- NOTE | 2021-04-10 09:56 | XR ---
EXAMINATION TYPE: XR cervical spine 1V DATE OF EXAM: 04/10/2021 COMPARISON: 04/10/2021 HISTORY: Hardware placement TECHNIQUE: Crosstable cervical spine FINDINGS: There is an anterior cervical fusion partially visualized which appears to lie between C5 a nd C7. Some prevertebral soft tissue swelling is present. IMPRESSION: 1. Post anterior cervical fusion lower cervical spine
[2021-04-10 09:59] VITALS: TEMP 97.9
[2021-04-10 11:46] VITALS: RESP 20
[2021-04-10] MEDS ORDERED: PRAMIPEXOLE DI HCL 1.5 MG PO SCH ×2 (12:00→21:00)
--- NOTE | 2021-04-10 12:22 | XR ---
EXAMINATION TYPE: XR cervical spine 1V DATE OF EXAM: 04/10/2021 COMPARISON: None HISTORY: Cervical stenosis needle placement TECHNIQUE: Crosstable lateral views obtained in the operating room FINDINGS: There is a needle directed to the C5-C6 disc space. Anterior vertebral body spurring is pre sent. Patient is intubated. IMPRESSION: 1. A needle directed to the C5-C6 disc level.
[2021-04-10 13:03] VITALS: PULSE 74
[2021-04-10 13:05] VITALS: BP 128/78
[2021-04-10] MEDS ORDERED: CYCLOBENZAPRINE 10 MG TAB PO SCH (16:00)
[2021-04-10] MEDS ORDERED: ASCORBIC ACID 500 MG TAB PO SCH (21:00)
[2021-04-10] MEDS ORDERED: METOPROLOL TARTRATE 25 MG TAB PO SCH (21:00)
[2021-04-10] MEDS ORDERED: clonazePAM 1 MG TAB PO SCH (21:00)
[2021-04-10] MEDS ORDERED: CALCIUM CARBONATE PO SCH (21:00)
[2021-04-10] MEDS ORDERED: NON FORMULARY DRUG (Folic Acid [Folic Acid] 0.4 MG Tablet) PO SCH (21:00)
[2021-04-10] MEDS ORDERED: traMADol 50 MG TAB PO SCH (21:00)
[2021-04-10] MEDS ORDERED: [UNRECOGNIZED DRUG - OTHER] PO SCH (21:00)
[2021-04-10] MEDS ORDERED: VITAMIN E (DL,TOCOPHERYL ACET) 400 UNIT (180 MG) CAP PO SCH (21:00)
[2021-04-10] MEDS ORDERED: VITAMIN D3 PO SCH (21:00)
[2021-04-11] MEDS ORDERED: FLUOXETINE HCL 20 MG PO SCH (09:00)
[2021-04-11] MEDS ORDERED: NON FORMULARY DRUG (Omeprazole [Omeprazole] 40 MG Capsule.Dr) PO SCH (09:00)
[2021-04-11] MEDS ORDERED: FUROSEMIDE 40 MG TAB PO SCH (09:00)
[2021-04-11] MEDS ORDERED: MULTIVITAMINS, THERA 1 EACH TAB PO SCH (09:00)
[2021-04-11] MEDS ORDERED: NON FORMULARY DRUG (Doxycycline Hyclate [Doxycycline Hyclate] 100 MG Tablet) PO SCH (09:00)
[2021-04-11] MEDS ORDERED: RIVAROXABAN 20 MG TAB PO SCH (17:30)
== END 2021-04-10 13:30 | disposition home or self-care (01) ==
LOC: OR 06:12
PROVIDERS: ATTEND Orthopaedic Surgery Orthopaedic Surgery of the Spine
DX: M48.02 Spinal stenosis, cervical region (principal); M50.122 Cervical disc disorder at C5-C6 level with radiculopathy; Z98.1 Arthrodesis status
CPT/HCPCS: 22551; 22552; 22845; 20936; 20930; 72020; C1713 ×2; C1762; J2250; J1100; J2710; J0690 ×2; J2405; J2001; J3010; J0330; J2704; 86850; 86900; 86901

== ENCOUNTER 2021-04-17 06:54 | Emergency (ER) | payer MEDICARE, OTHER ==
[2021-04-17 07:02] VITALS: TEMP 97.8
[2021-04-17] MEDS ORDERED: MORPHINE SULFATE 4 MG/ML SYRINGE IM STA (07:18)
--- NOTE | 2021-04-17 08:08 | XR ---
EXAMINATION TYPE: XR chest 2V DATE OF EXAM: 04/17/2021 COMPARISON: April 01, 2021 HISTORY: Shortness of breath TECHNIQUE: Frontal and lateral views of the chest are obtained. FINDINGS: Scattered senescent parenchymal changes noted. Hyperinflation compatible with COPD. No evidence for infiltrate. No evidence for atelectasis. Heart size is stable. Mediastinal structures are stable and grossly unremarkable. No evidence for hilar prominence. Degenerative changes dorsal spine. IMPRESSION: 1. No evidence for acute pulmonary disease.
--- NOTE | 2021-04-17 08:09 | XR ---
EXAMINATION TYPE: XR cervical spine limited DATE OF EXAM: 04/17/2021 CLINICAL HISTORY: pain TECHNIQUE: 3 views of the cervical spine are submitted. COMPARISON: None. FINDINGS: There is satisfactory in alignment without evidence of acute fracture or dislocation. The pre-vertebral soft tissue appears within normal limits. Postoperative changes of ACDF C5-C7. Alignme nt is anatomic. Mild degenerative change C3-4 and C4-5. The C1-C2 articulation is unremarkable on the open mouth view. IMPRESSION: No acute fracture or dislocation is seen in the cervical spine.
[2021-04-17 08:11] VITALS: RESP 20
--- NOTE | 2021-04-17 08:21 | ED ---
Recheck HPI - General Chief Complaint: Recheck/Abnormal Lab/Rx Stated Complaint: Post-op shoulder/arm pain Time Seen by Provider: 04/17/21 07:05 Source: patient, RN notes reviewed Mode of arrival: ambulatory - History of Present Illness Initial Comments: Patient is a 70-year-old male that presents to the emergency department complaining of bilateral upper extremity numbness and tingling status post cervical spine surgery approximately [address] Roldan. He notes he does have a follow-up with them scheduled for Thursday for wanted to come get evaluated as the pain has been steady and not covered by his Earth fives. Patient's also notes that he seems to be shorter breath. Patient was otherwise well-appearing 70-year-old male in no apparent distress or pain. He denied any chest pain headache nausea vomiting diarrhea constipation fever fatigue chills. - Related Data Home Medications Medication Instructions Recorded Confirmed Ascorbic Acid [Vitamin C] 500 mg PO HS 01/25/15 04/10/21 Calcium Carbonate/Vitamin D3 1 each PO BID 01/25/15 04/10/21 [Calcium 600-Vit D3 400 Tablet] FLUoxetine HCL [Sarafem] 20 mg PO DAILY 01/25/15 04/10/21 Folic Acid 0.4 mg PO HS 01/25/15 04/10/21 Furosemide [Lasix] 40 mg PO DAILY 01/25/15 04/10/21 Metoprolol Tartrate 100 mg PO BID 01/25/15 04/10/21 Multivitamins, Thera [Multivitamin 1 each PO DAILY 01/25/15 04/10/21 (formulary)] Omeprazole 40 mg PO DAILY 01/25/15 04/10/21 Pramipexole Di-HCl [Mirapex] 1.5 mg PO 1200 01/25/15 04/10/21 Pramipexole Di-HCl [Mirapex] 1.5 mg PO HS 01/25/15 04/10/21 Rivaroxaban [Xarelto] 20 mg PO W/SUPPER 01/25/15 04/10/21 Vitamin E (Dl,Tocopheryl Acet) 400 unit PO HS 01/25/15 04/10/21 [Vitamin E (400 Iu = 180 mg)] clonazePAM [KlonoPIN] 1 mg PO HS 01/25/15 04/10/21 Doxycycline Hyclate 100 mg PO DAILY 12/23/16 04/10/21 traMADol HCl [Ultram] 50 mg PO BID 12/23/16 04/10/21 Cyclobenzaprine [Flexeril] 10 mg PO TID 04/05/21 04/10/21 Previous Rx's Medication Instructions Recorded HYDROcodone/APAP 5-325MG [Earth 5] 1 each PO Q6HR PRN #28 tab 04/10/21 HYDROcodone/APAP 10-325MG [Earth 1 tab PO Q6HR PRN 3 Days #12 tab 04/17/21 10-325] Allergies Allergy/AdvReac Type Severity Reaction Status Date / Time clindamycin Allergy Rash/Hives Verified 04/17/21 07:02 warfarin sodium Allergy Rash/Hives Verified 04/17/21 07:02 [From Coumadin] tape Allergy blister Uncoded 04/17/21 07:02 tegaderm Allergy blister Uncoded 04/17/21 07:02 Review of Systems ROS Statement: Those systems with pertinent positive or pertinent negative responses have been documented in the HPI. ROS Other: All systems not noted in ROS Statement are negative. Past Medical History Past Medical History: Atrial Fibrillation, CVA/TIA, GERD/Reflux, Hyperlipidemia, Hypertension, Osteoarthritis (OA), Sleep Apnea/CPAP/BIPAP Additional Past Medical History / Comment(s): TIA History of Any Multi-Drug Resistant Organisms: MRSA Date of last positivie culture/infection: 07/14/14 MDRO Source:: rt shoulder Past Surgical History: Back Surgery, Cardiac Ablation, Joint Replacement, Orthopedic Surgery Additional Past Surgical History / Comment(s): Left knee replacement, bilateral knee arthroscopy, bilateral shoulder surgeries (total 25), jericho in back. Past Anesthesia/Blood Transfusion Reactions: No Reported Reaction Past Psychological History: No Psychological Hx Reported Smoking Status: Former smoker Past Alcohol Use History: None Reported Past Drug Use History: None Reported - Past Family History Mother Family Medical History: No Reported History General Exam General appearance: alert, in no apparent distress Head exam: Present: atraumatic, normocephalic, normal inspection Eye exam: Present: normal appearance, PERRL, EOMI. Absent: scleral icterus, conjunctival injection, periorbital swelling Neck exam: Present: normal inspection. Absent: full ROM (Secondary to pain and procedure.) Respiratory exam: Present: normal lung sounds bilaterally. Absent: respiratory distress, wheezes, rales, rhonchi, stridor Cardiovascular Exam: Present: regular rate, normal rhythm, normal heart sounds. Absent: systolic murmur, diastolic murmur, rubs, gallop, clicks GI/Abdominal exam: Present: soft, normal bowel sounds. Absent: distended, tenderness, guarding, rebound, rigid Extremities exam: Present: normal inspection, full ROM, normal capillary refill. Absent: tenderness, pedal edema, joint swelling, calf tenderness Neurological exam: Present: alert, oriented X3 Psychiatric exam: Present: normal affect, normal mood Skin exam: Present: warm, dry, intact, normal color. Absent: rash Course Vital Signs 04/17/21 04/17/21 06:57 08:01 Temperature 97.8 F Pulse Rate 91 83 Respiratory 19 20 Rate Blood Pressure 172/94 127/71 O2 Sat by Pulse 93 L 95 Oximetry Medical Decision Making - Medical Decision Making 70-year-old male complaining of bilateral upper extremity numbness tingling status post cervical spine surgery and some shortness of breath. X-rays cervical spine, chest x-ray, EKG, basic labs ordered. Imaging negative for any acute process. Labs unremarkable. EKG within normal limits. Case discussed with Dr. Whitehead, patient can discharge home. Sergio from orthopedics was consulted and states that patient can discharge home with follow-up on Thursday as planned. - Lab Data Result diagrams: 04/17/21 08:10 04/17/21 08:10 Lab Results 04/17/21 04/17/21 Range/Units 08:10 08:10 WBC 9.5 (3.8-10.6) k/uL RBC 4.51 (4.30-5.90) m/uL Hgb 14.6 (13.0-17.5) gm/dL Hct 43.7 (39.0-53.0) % MCV 97.0 (80.0-100.0) fL MCH 32.4 (25.0-35.0) pg MCHC 33.4 (31.0-37.0) g/dL RDW 14.4 (11.5-15.5) % Plt Count 170 (150-450) k/uL MPV 7.5 Neutrophils % 72 % Lymphocytes % 17 % Monocytes % 6 % Eosinophils % 3 % Basophils % 1 % Neutrophils # 6.9 (1.3-7.7) k/uL Lymphocytes # 1.6 (1.0-4.8) k/uL Monocytes # 0.6 (0-1.0) k/uL Eosinophils # 0.2 (0-0.7) k/uL Basophils # 0.1 (0-0.2) k/uL Poikilocytosis Slight Sodium 135 L (137-145) mmol/L Potassium 4.3 (3.5-5.1) mmol/L Chloride 102 (98-107) mmol/L Carbon Dioxide 26 (22-30) mmol/L Anion Gap 7 mmol/L BUN 18 (9-20) mg/dL Creatinine 0.94 (0.66-1.25) mg/dL Est GFR (CKD-EPI)AfAm >90 (>60 ml/min/1.73 sqM) Est GFR (CKD-EPI)NonAf 82 (>60 ml/min/1.73 sqM) Glucose 148 H (74-99) mg/dL Calcium 8.7 (8.4-10.2) mg/dL Total Bilirubin 2.0 H (0.2-1.3) mg/dL AST 23 (17-59) U/L ALT 18 (4-49) U/L Alkaline Phosphatase 64 (38-126) U/L Total Protein 6.5 (6.3-8.2) g/dL Albumin 3.7 (3.5-5.0) g/dL - EKG Data -: EKG Interpreted by Nv EKG shows normal: sinus rhythm Rate: normal EKG Comments: Ventricular rate 85 bpm, NV interval 140 ms, QRS duration 72 ms, QTC 409 ms, PRT axes 68/40/32. Normal sinus rhythm. Normal ECG. - Radiology Data Radiology results: report reviewed, image reviewed X-ray of the cervical spine: There is satisfactory alignment without evidence of acute fracture dislocation. The prevertebral soft tissue appears within normal limits. Postoperative changes of ACDF C5 to C7 alignment is anatomic. Mild degenerative change C3 to 4 and C4 to 5 C1 to C2 articulation is unremarkable on the open mouth view. Chest x-ray: No evidence for acute pulmonary disease. Disposition Clinical Impression: Cervical radiculopathy Disposition: HOME SELF-CARE Condition: Stable Instructions (If sedation given, give patient instructions): Pain Management After Surgery (DC) Additional Instructions: Please return to the Emergency Department if symptoms worsen or any other con cerns. Take pain medication as prescribed. Follow-up with orthopedics as planned on Thursday. Is patient prescribed a controlled substance at d/c from ED?: No Referrals: Marielos Negron MD [Primary Care Provider] - 1-2 days Time of Disposition: 09:55
[2021-04-17 08:36] LABS: Basophils # (A) 0.1 k/uL (0-0.2); Basophils % (A) 1 %; Eosinophils # (A) 0.2 k/uL (0-0.7); Eosinophils % (A) 3 %; HCT 43.7 % (39.0-53.0); HGB 14.6 gm/dL (13.0-17.5); Lymphocytes # (A) 1.6 k/uL (1.0-4.8); Lymphocytes % (A) 17 %; MCH 32.4 pg (25.0-35.0); MCHC 33.4 g/dL (31.0-37.0); Mean Platelet Volume 7.5; Monocytes # (A) 0.6 k/uL (0-1.0); Monocytes % (A) 6 %; Neutrophils # (A) 6.9 k/uL (1.3-7.7); Neutrophils % (A) 72 %; Platelet Count 170 k/uL (150-450); Poikilocytosis Slight; RBC 4.51 m/uL (4.30-5.90); RDW 14.4 % (11.5-15.5); WBC 9.5 k/uL (3.8-10.6)
[2021-04-17 08:49] LABS: ALT 18 U/L (4-49); AST 23 U/L (17-59); African American GFR (CKD) >90 (>60 ml/min/1.73 sqM); Albumin 3.7 g/dL (3.5-5.0); Alkaline Phosphatase 64 U/L (38-126); Anion Gap 7 mmol/L; Blood Urea Nitrogen 18 mg/dL (9-20); Calcium 8.7 mg/dL (8.4-10.2); Carbon Dioxide 26 mmol/L (22-30); Chloride 102 mmol/L (98-107); Glucose 148 mg/dL (74-99); Non-African American GFR(CKD) 82 (>60 ml/min/1.73 sqM); Potassium 4.3 mmol/L (3.5-5.1); Sodium 135 mmol/L (137-145); Total Protein 6.5 g/dL (6.3-8.2)
[2021-04-17 10:16] VITALS: BP 130/80; PULSE 78
== END 2021-04-17 10:09 | disposition home or self-care (01) ==
LOC: EC 06:54
DX: M54.12 Radiculopathy, cervical region (principal); I10 Essential (primary) hypertension; E78.5 Hyperlipidemia, unspecified; I48.91 Unspecified atrial fibrillation; M19.90 Unspecified osteoarthritis, unspecified site; K21.9 Gastro-esophageal reflux disease without esophagitis; Z79.01 Long term (current) use of anticoagulants; Z79.899 Other long term (current) drug therapy; Z88.1 Allergy status to other antibiotic agents; Z88.8 Allergy status to other drugs, medicaments and biological substances; Z87.891 Personal history of nicotine dependence
CPT/HCPCS: 36415; 71046; 72040; 80053; 85025; 93005; 96372; 99284

== ENCOUNTER → 2021-05-15 | Outpatient (CLI) | payer MEDICARE, OTHER ==
--- NOTE | 2021-05-15 13:14 | SFUN ---
SLEEP CENTER FOLLOW UP NOTE DATE OF SERVICE: 05/15/2021 This 70-year-old gentleman has been followed in Sleep Center for treatment of obstructive sleep apnea-hypopnea syndrome. The patient continues to use his CPAP equipment every night. In March of this year he had neck surgery. He has no snoring with the machine. He is receiving his supplies on time. Bicknell Sleepiness Scale today is 4. I checked his CPAP unit. Pressure is 12 cm of water. Usage is 30/30 nights and 21/30 nights for more than 4 hours, average 5 hours per night. Leak is high at 49 L/minute, but at the same time apnea-hypopnea index is only 0.7, which is absolutely perfect. MEDICATIONS: 1. Lasix 20 mg once a day. 2. Omeprazole 40 mg once a day. 3. Mirapex 2 tablets at bedtime. 4. Klonopin. 5. Flexeril 10 mg 2 tablets in the morning. 6. Xarelto. 7. Metoprolol 100 mg twice a day. 8. Prozac once a day. PHYSICAL EXAMINATION: GENERAL: Pleasant patient in no distress. VITAL SIGNS: BP 124/66, HR 69, RR 18, height 5 feet 8 inches, weight 237.0, body mass index 36.0, temperature 96.9, oxygen saturation at room air 97%. HEENT: PERRLA, EOMI, evaluation of oropharynx showed tongue protrudes midline. Extremely low position of soft palate; Mallampati IV. NECK: Supple, no JVD. Thyroid is not palpable. LUNGS: Clear to percussion and to auscultation. Good air exchange. No wheezing or rhonchi. HEART: S1, S2 regular. No murmurs, gallops, or rubs. ABDOMEN: Obese. EXTREMITIES: No clubbing or cyanosis. 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 Cranial nerves 2 to 7 intact. There is no fasciculation or atrophy. noted. No focal deficits observed. IMPRESSION: 1. Severe obstructive sleep apnea-hypopnea syndrome. The patient demonstrated good compliance with treatment, benefitting from treatment. 2. History of atrial fibrillation, status post cardiac ablation. No recent episodes of atrial fibrillation. 3. Obesity; body mass index 36.0. 4. History of depression. 5. History of restless leg syndrome. 6. Status post UPPP and nasal surgery for obstructive sleep apnea. 7. Status post bilateral shoulder surgeries. 8. Status post left knee replacement. 9. Status post surgery for right carpal tunnel syndrome. 10.Status post back surgery on the level of L3-S1. 11.Status post left carotid endarterectomy. PLAN: 1. Replace air filter. It is in bad condition. 2. Previously he tried a chinstrap. The patient does not like it. 3. Patient will continue to use PAP equipment every night for the whole night. 4. Sleep hygiene with regular time in bed for at least 7-1/2 to 8 hours. 5. Precautions related to driving. No driving if feeling sleepiness. 6. I will maintain all necessary prescription for PAP supplies including mask, tube, filters. 7. Watching weight. 8. Follow-up visit in 6 months or earlier if patient has any problems. Thank you very much for allowing me to participate in the management of your patient. Sincerely, Isac Farfan MD, PhD, FAASM Diplomat of [employer] Sleep Medicine Board of [employer] Project Financial Analyst of [facility] [place] MMODL / KANUN: [id number] /
== END ==
LOC: SLEEP 11:03
PROVIDERS: ATTEND Internal Medicine
DX: G47.33 Obstructive sleep apnea (adult) (pediatric) (principal); E66.9 Obesity, unspecified; F32.9 Major depressive disorder, single episode, unspecified; I48.91 Unspecified atrial fibrillation; Z98.890 Other specified postprocedural states; Z96.652 Presence of left artificial knee joint; Z98.1 Arthrodesis status; Z68.36 Body mass index [BMI] 36.0-36.9, adult; Z99.89 Dependence on other enabling machines and devices; Z88.1 Allergy status to other antibiotic agents; Z88.8 Allergy status to other drugs, medicaments and biological substances; Z91.048 Other nonmedicinal substance allergy status; Z87.891 Personal history of nicotine dependence

== ENCOUNTER → 2021-07-22 | Outpatient (CLI) | payer MEDICARE, OTHER ==
--- NOTE | 2021-07-22 09:28 | CT ---
EXAMINATION TYPE: CT cervical spine wo/w con DATE OF EXAM: 07/22/2021 COMPARISON: Cervical spine x-ray April 17, 2021 HISTORY: neck pain, radiculopathy CT DLP: 3072.6 mGycm. Automated Exposure Control for Dose Reduction was Utilized. TECHNIQUE: CT scan of the cervical spine is obtained without contrast, axial images are obtained, sa gittal and coronal reformatted images are also reviewed. FINDINGS: Cervical spine is visualized in its entirety from C1 through upper thoracic levels,. There is persistent levoconvex scoliosis in the lower cervical spine associated of prior surgery. There is anterior fusion plate C5-C7 levels with artificial disc material. There is grade 1 retrolisthesis of C7 on T1 with the inferior aspect of the fusion plate touching the superior T1 endplate and abrupt c hange in angle or alignment. The C1-C2 articulation is satisfactory on coronal images. Vertebral body heights and disc space heights satisfactory above C5 level and below T1 level. Review of axial images shows marked uncovertebral facet degenerative changes particularly right C3-C4 level causing advanced right-sided neural foraminal narrowing. There is right paracentral spur disc complex effacing anterior thecal sac. Axial images at C4-C5 level are within normal limits. Axial images at C5-C6 level show posterior osteophytic ridging effacing anterior thecal sac and uncov ertebral facet spurring causing moderate to severe left and moderate right-sided neural foraminal lynne rowing. Axial images at C6-C7 level show posterior ossific spurring effacing the anterior thecal sac and caus ing mild right greater than left bilateral neural foraminal narrowing. Axial images at C7-T1 level show abnormal soft tissue in the prevertebral space with poor visualizati on of the esophagus this is best seen on axial image 72. Lung apices show no pneumothorax. Thyroid gland appears within normal limits. IMPRESSION: Postsurgical changes C5-C7 level. Abnormal alignment at the C7-T1 junction. Abnormal preV ertebral soft tissue at this level raises concern for prior infection and slippage of hardware.
== END | disposition home or self-care (01) ==
LOC: RADCTMAIN 06:06
PROVIDERS: ATTEND Orthopaedic Surgery Orthopaedic Surgery of the Spine
DX: M54.12 Radiculopathy, cervical region (principal); Z98.1 Arthrodesis status
CPT/HCPCS: 82565; 84520; 72127; 36415; Q9967

== ENCOUNTER → 2021-10-18 | Outpatient (CLI) | payer MEDICARE, OTHER ==
[~2021-10-18] MED LIST changes: -DEXAMETHASONE SOD PHOSPHATE 4 MG/ML 1 ML VIAL IV ONE; -LACTATED RINGERS 1,000 ML IV SCH; -MIDAZOLAM 2 MG/2 ML VIAL IV PRN; -ONDANSETRON 4 MG/2 ML VIAL IVP ONE; +REGADENOSON 0.4 MG/5 ML SYRINGE IV ONE; -ceFAZolin 1,000 MG in SODIUM CHLORIDE 0.9% IRRIGATIO 1,000 ML IRRIGATION PRN
--- NOTE | 2021-10-18 11:57 | NM ---
EXAMINATION TYPE: NM stress lexiscan cardiolite DATE OF EXAM: 10/18/2021 COMPARISON: NONE HISTORY: Precordial chest pain and abnormal EKG TECHNIQUE: After the intravenous administration of 10.2 mCi Tc 99m Sestamibi - Cardiolite resting SP ECT images acquired 55 minutes post injection. The patient received 0.4mg Lexiscan, 25.6 mCi Tc 99m Sestamibi - Stress images obtained [address] injection FINDINGS: Review of stress and rest SPECT images demonstrates decreased perfusion involving the cardiac apex an d inferior wall on stress images. Stress-induced ischemia is difficult to exclude. Gated analysis eusebia ws normal wall motion with an estimated left ventricular ejection fraction of 64 %. IMPRESSION: Stress-induced ischemia is difficult to exclude involving the cardiac apex and inferior wall.
--- NOTE | 2021-10-18 12:32 | ECHOF ---
Referral Reason:Z01.818 preoperative clearance MEASUREMENTS -------- HEIGHT: 172.7 cm WEIGHT: 106.6 kg BP: RVIDd: 2.5 cm (< 3.3) IVSd: 0.8 cm (0.6 - 1.1) LVIDd: 4.8 cm (3.9 - 5.3) LVPWd: 1.3 cm (0.6 - 1.1) IVSs: 1.4 cm LVIDs: 4.3 cm LVPWs: 1.5 cm LAESV Index (A-L): 38.67 ml/m Ao Diam: 2.4 cm (2.0 - 3.7) MV EXCURSION: 11.243 mm (> 18.000) MV EF SLOPE: 70 mm/s (70 - 150) EPSS: 0.5 cm MV E Alban: 0.85 m/s MV DecT: 157 ms MV A Alban: 0.50 m/s MV E/A Ratio: 1.71 RAP: 5.00 mmHg RVSP: 53.38 mmHg FINDINGS -------- Sinus rhythm. This was a technically difficult study with suboptimal views. This was a techncally difficult study with suboptimal views, , Lumason utilized for enhancement of images. LV size, wall thickness and systolic function are normal, with an EF greater than 55%. The left sly tricular size is normal. The LV end diastolic pressure is elevated 13.12. The right ventricle is normal in size. LA is severely dilated >40 ml/m2 The right atrial size is normal. There is mild aortic valve sclerosis. Mild mitral annular calcification present. Mild mitral regurgitation is present. The tricuspid valve appears structurally normal. Mild tricuspid regurgitation present. There is m oderate pulmonary hypertension. The right ventricular systolic pressure, as measured by Doppler, is 53.38mmHg. The pulmonic valve was not well visualized. The aortic root size is normal. Echo free space represents a pericardial fat pad. CONCLUSIONS -------- 1. This was a techncally difficult study with suboptimal views, , Lumason utilized for enhancement of images. 2. LV size, wall thickness and systolic function are normal, with an EF greater than 55%. 3. LA is severely dilated >40 ml/m2 4. Mild mitral regurgitation is present. 5. Mild tricuspid regurgitation present. 6. There is moderate pulmonary hypertension. PYROMETALLURGICAL ENGINEER: Farida Redmond RDCS
--- NOTE | 2021-10-18 14:28 | EST ---
EXERCISE STRESS AGE: 70 SEX: M HT: 5'8" WT: 235 lbs. PROTOCOL: Lexiscan STAGE: NA DURATION OF EXERCISE: 5:00 infusion time HEART RATE REST: 55 BLOOD PRESSURE REST: 116/59 MAXIMUM HEART RATE ACHIEVED: 76 MAXIMUM BLOOD PRESSURE: 116/59 85% MPHR: 128 100% MPHR: 150 METS: NA INDICATIONS: Pre-OP CLINICAL INFORMATION: Baseline rhythm is sinus mechanism, rate 55, normal axis and intervals. Normal echocardiogram. Baseline blood pressure 116/59 mmHg. Patient received injection of Lexiscan. Electrocardiographic monitoring revealed no evidence of diagnostic ischemic ST deviation. Cardiolite was injected per protocol. CONCLUSION: 1. Nondiagnostic electrocardiograph stress testing. 2. Nuclear images will be reported separately. MMODL / IJN: [id number] /
== END ==
LOC: RADECHMAIN 07:49
PROVIDERS: ATTEND Internal Medicine
DX: Z01.818 Encounter for other preprocedural examination (principal); I08.1 Rheumatic disorders of both mitral and tricuspid valves; I27.20 Pulmonary hypertension, unspecified
CPT/HCPCS: 93017; 78452; C8929; A9500; J2785; Q9950; 93306

== ENCOUNTER → 2021-10-24 | Outpatient (CLI) | payer MEDICARE, OTHER ==
[2021-10-24 14:54] LABS: HCT 45.7 % (39.6-50.0); HGB 14.9 g/dL (13.0-17.0); MCHC 32.6 g/dL (32.0-37.0); MCV 92.1 fL (80.0-97.0); Mean Platelet Volume 9.7 fL (9.5-12.2); NRBC Per 100 WBC 0 /100 WBCS (0.0-0.0); Platelet Count 179 X 10*3/uL (140-440); RBC 4.96 X 10*6/uL (4.40-5.60); RDW 14.4 % (11.5-14.5); WBC 4.88 X 10*3/uL (4.50-10.00)
[2021-10-24 16:10] LABS: African American GFR (CKD) 70.1 (60.0-200.0); Anion Gap 10.7 mmol/L (10.00-18.00); Blood Urea Nitrogen 18.3 mg/dL (9.0-27.0); Carbon Dioxide 26.3 mmol/L (20.0-27.5); Magnesium 2.2 mg/dL (1.5-2.4); Non-African American GFR(CKD) 60.5 (60.0-200.0)
[2021-10-25 13:58] LABS: Coronavirus SARS CoV-2 Not Detected (Not Detected)
== END | disposition home or self-care (01) ==
LOC: LABPAT 08:07
PROVIDERS: ATTEND Internal Medicine Interventional Cardiology
DX: Z01.812 Encounter for preprocedural laboratory examination (principal); Z20.822 Contact with and (suspected) exposure to COVID-19; R94.39 Abnormal result of other cardiovascular function study
CPT/HCPCS: 80051; 82565; 83735; 84520; 85027; 36415; U0003; C9803

== ENCOUNTER 2021-10-25 09:21 | Day surgery (SDC) | payer MEDICARE, OTHER ==
[2021-10-24 10:18] VITALS: BMI 40.3
[~2021-10-25 09:21] MED LIST changes: +ALPRAZolam 0.25 MG TAB PO PRN; +ALPRAZolam 0.5 MG TAB PO PRN; +ASPIRIN 325 MG TAB PO STA; +HEPARIN SODIUM,PORCINE 10,000 UNIT in SODIUM CHLORIDE 0.9% 1,000 ML IRRIGATION PRN; +HEPARIN SODIUM,PORCINE 2,500 UNIT in SODIUM CHLORIDE 0.9% 250 ML IRRIGATION PRN; +NITROGLYCERIN SL TABS 0.4 MG TAB SUBLINGUAL PRN; -REGADENOSON 0.4 MG/5 ML SYRINGE IV ONE; +SODIUM CHLORIDE 0.9% 1,000 ML in EMPTY BAG 1 BAG IV SCH
[2021-10-25] MEDS ORDERED: SODIUM CHLORIDE 0.9% 1,000 ML IV ONE (10:09)
[2021-10-25 10:13] VITALS: RESP 16; TEMP 97.8
[2021-10-25] MEDS ORDERED: MIDAZOLAM 2 MG/2 ML VIAL IV ONE ×2 (11:05)
[2021-10-25] MEDS ORDERED: LIDOCAINE 1% INJ 10MG/ML (10 ML MDV) SQ ONE ×2 (11:11→11:12)
[2021-10-25] MEDS: VERAPAMIL SYRINGE (5 MG/10 ML) INTRAARTER ONE ×2 (11:17→11:32)
[2021-10-25] MEDS ORDERED: HEPARIN SODIUM 1,000 UN/ML (10ML VL) IV ONE (11:17)
[2021-10-25] MEDS ORDERED: IOPAMIDOL-370 100ML BTL INJ ONE (11:31)
[2021-10-25] MEDS ORDERED: oxyCODONE-APAP 10-325MG 1 EACH TAB PO PRN (11:53)
[2021-10-25] MEDS ORDERED: RX INFO: IV CONTRAST WAS GIVEN 1 EACH MISC MISCELLANE PRN (12:03)
[2021-10-25] MEDS ORDERED: SODIUM CHLORIDE 0.9% 1,000 ML IV SCH (12:15)
--- NOTE | 2021-10-25 13:17 | CC ---
CARDIAC CATHETERIZATION REPORT DATE OF SERVICE: 10/25/2021. PROCEDURE: Left heart catheterization and coronary angiography. PERFORMED BY: Dr. Farrah Barragan. Moderate conscious sedation time was 23 minutes. Patient was administered Versed. Oxygen saturation, hemodynamics and EKG were monitored closely. CLINICAL INFORMATION: Mr. Soto Callahan is a 71-year-old gentleman who is going for elective redo cervical spine surgery at [facility]. He had a positive stress test which was performed as a workup prior to elective surgery. There was evidence of reversible defect in the inferoapical portion. He was therefore advised cardiac cath after due discussion regarding risks, benefits and options. PROCEDURE NOTE: Under local anesthesia and strict aseptic precautions, a 6-Marshallese introducer was placed in the right radial artery. Using a JR4 and JL3.5 catheters, I performed coronary angiography, and the same right Claudia catheter was used to check LV pressure, but LV gram was not performed. The sheath was then taken out and TR band applied as per protocol, with saturation in the fingers of the right hand of 95%. Patient tolerated the procedure well without complications. CARDIAC CATHETERIZATION FINDINGS: The left ventricular end-diastolic pressure was 14 mmHg without any gradient across the aortic valve. CORONARY ANGIOGRAPHY FINDINGS: RIGHT CORONARY ARTERY: Technically a dominant vessel, has about a 35% narrowing in the proximal one third. Distally the caliber of the vessel is good, bifurcates into PDA and PLV, both of which have minor irregularities. No significant disease in the dominant RCA. There is a 35% to 40% proximal lesion noted, unchanged from before. LEFT MAIN CORONARY ARTERY: This is a short, patent vessel free of significant disease that bifurcates into LAD and circumflex. LEFT ANTERIOR DESCENDING CORONARY ARTERY: Good-caliber vessel extends along the anterior wall, gives off septal and diagonal branches, runs all the way to the apex, has no significant disease. LEFT POSTERIOR CIRCUMFLEX CORONARY ARTERY: Nondominant vessel gives off a good-sized obtuse marginal, then runs down as a second obtuse marginal. Minor irregularities in the circumflex. Nondominant system. Overall no significant disease. FINAL IMPRESSION: This patient has normal filling pressures, no gradient across the aortic valve. He has a right-dominant system with 35% to 40% proximal RCA stenosis unchanged. No significant disease in the nondominant circumflex or the LAD system. RECOMMENDATIONS: Continued medical therapy with risk factor modification is advised. Patient will be discharged later on today. He can proceed with the elective cervical spine surgery with a moderate risk. Advised cautious fluid administration and optimal BP control perioperatively. Findings were discussed with the patient, his and also with Dr. Negron, his primary care physician. CHAVEZ / MELVIN: [id number] /
[2021-10-25 14:50] VITALS: BP 111/61; PULSE 50
[2021-10-25] MEDS ORDERED: CYCLOBENZAPRINE 10 MG TAB PO SCH (16:00)
[2021-10-25] MEDS ORDERED: GABAPENTIN 300 MG CAP PO SCH (16:00)
[2021-10-25] MEDS ORDERED: METOPROLOL TARTRATE 25 MG TAB PO SCH (21:00)
[2021-10-25] MEDS ORDERED: PRAMIPEXOLE DI HCL 1.5 MG PO SCH (21:00)
[2021-10-25] MEDS ORDERED: clonazePAM 1 MG TAB PO SCH (21:00)
[2021-10-25] MEDS ORDERED: RIVAROXABAN 20 MG TAB PO SCH (21:00)
[2021-10-26] MEDS ORDERED: MULTIVITAMINS, THERA 1 EACH TAB PO SCH (09:00)
[2021-10-26] MEDS ORDERED: [UNRECOGNIZED DRUG - OTHER] PO SCH (09:00)
[2021-10-26] MEDS ORDERED: VITAMIN E (DL,TOCOPHERYL ACET) 400 UNIT (180 MG) CAP PO SCH (09:00)
[2021-10-26] MEDS ORDERED: ASCORBIC ACID 500 MG TAB PO SCH (09:00)
[2021-10-26] MEDS ORDERED: VITAMIN D3 PO SCH (09:00)
[2021-10-26] MEDS ORDERED: NON FORMULARY DRUG (Folic Acid [Folic Acid] 0.4 MG Tablet) PO SCH (09:00)
[2021-10-26] MEDS ORDERED: NON FORMULARY DRUG (Doxycycline Hyclate [Doxycycline Hyclate] 100 MG Tablet) PO SCH (09:00)
[2021-10-26] MEDS ORDERED: NON FORMULARY DRUG (Omeprazole [Omeprazole] 40 MG Capsule.Dr) PO SCH (09:00)
[2021-10-26] MEDS ORDERED: FUROSEMIDE 20 MG TAB PO SCH (09:00)
[2021-10-26] MEDS ORDERED: FLUOXETINE HCL 20 MG PO SCH (09:00)
[2021-10-26] MEDS ORDERED: CALCIUM CARBONATE PO SCH (09:00)
== END 2021-10-25 16:55 | disposition home or self-care (01) ==
LOC: CATHCVL 09:21
PROVIDERS: ATTEND Internal Medicine Interventional Cardiology
DX: I25.10 Atherosclerotic heart disease of native coronary artery without angina pectoris (principal); R94.39 Abnormal result of other cardiovascular function study; I48.0 Paroxysmal atrial fibrillation; I10 Essential (primary) hypertension; E78.5 Hyperlipidemia, unspecified; M50.30 Other cervical disc degeneration, unspecified cervical region; I27.20 Pulmonary hypertension, unspecified; F17.210 Nicotine dependence, cigarettes, uncomplicated; I07.1 Rheumatic tricuspid insufficiency; Z20.822 Contact with and (suspected) exposure to COVID-19; Z79.01 Long term (current) use of anticoagulants; Z79.899 Other long term (current) drug therapy; Z88.1 Allergy status to other antibiotic agents; Z88.8 Allergy status to other drugs, medicaments and biological substances; Z91.09 Other allergy status, other than to drugs and biological substances; Z82.49 Family history of ischemic heart disease and other diseases of the circulatory system
CPT/HCPCS: 93458; 87635; C1894; C1769 ×2; J2250; J1644; J2001; Q9967

== ENCOUNTER → 2021-12-09 | Outpatient (CLI) | payer MEDICARE, OTHER ==
--- NOTE | 2021-12-09 09:18 | CT ---
EXAMINATION TYPE: CT soft tissue neck wo con DATE OF EXAM: 12/09/2021 HISTORY: oozing lump under chin COMPARISON: CT dated 07/22/2021 CT DLP: 780 mGycm. Automated Exposure Control for Dose Reduction was Utilized. TECHNIQUE: CT scan of the neck is performed without IV contrast administration, axial images are obt ained, coronal and sagittal reformatted images are reviewed. FINDINGS: Suboptimal CT scan due to the lack of IV contrast administration. Ill-defined hypodensity seen in the right side of the lower neck anteriorly along the anteromedial as pect of the inferior portion of the right sternocleidomastoid muscle with overlying skin thickening a nd focal bulge likely representing the area of patient's complaint. This is incompletely characterize d by this CT scan and could represent a focal inflammatory/infectious process however underlying absc ess or other lesion can't be excluded. This area roughly measures 19 x 22 x 20 mm. It is inseparable posteriorly from the right side of the strap neck muscles as well as the superior aspect of the right thyroid lobe. No soft tissue gas or calcification. Unremarkable nasopharynx, oropharynx, hypopharynx, larynx, trachea and visualized portion of the esop hagus. Symmetrical unremarkable parotid and submandibular salivary glands. No other thyroid gland abn ormality identified. Scattered arterial atherosclerotic calcification. No suspicious or pathologicall y enlarged lymph nodes in the neck. The pulmonary trunk measures up to 4.2 cm suggestive of pulmonary hypertension. Bilateral maxillary sinus mucosal thickening. Clear mastoid air cells. Reversal of normal cervical cu rvature. Previous anterior fixation of C5, C6 and C7 vertebrae with apparent impaction of the metalli c prosthesis in T1 vertebral body. Further MRI of the cervical spine can be considered if clinically required. Severe degenerative changes of the right glenohumeral articulation, please correlate clinic ally. IMPRESSION: Suspected focal inflammatory/infectious process at the area of interest as described above. No soft t issue gas or calcification. Underlying lesion or abscess formation cannot be excluded by this nonenha nced CT scan, please correlate clinically. Further targeted ultrasound assessment or enhanced CT asse ssment can be considered. Other findings as described above.
== END | disposition home or self-care (01) ==
LOC: RADCTMAIN 07:31
PROVIDERS: ATTEND Internal Medicine
DX: R22.1 Localized swelling, mass and lump, neck (principal)
CPT/HCPCS: 70490

== ENCOUNTER → 2022-07-10 | Outpatient (CLI) | payer MEDICARE, OTHER ==
--- NOTE | 2022-07-10 16:51 | P.PN ---
Subjective DATE: 07/10/2022 FOLLOW UP VISIT. Patient with obstructive sleep apnea hypopnea syndrome return to sleep center for follow-up visit. Information from previous visit have been reviewed. Patient is using PAP equipment every night for the whole night, getting PAP supplies in time. The patient does not have significant problems with the mask, PAP unit and humidification. Avilla sleepiness scale is 8, which is normal. I checked PAP unit. PAP unit pressure 12 cm H2O. Usage is 100 % for more then 4 hours, average 5.1 hours per night. Leak is high 61 l/m. Apnea Hypopnea Index is 1.1, which is normal. MEDICATIONS:1. Metoprolol 50 mg twice a day 2. Omeprazole 40 mg once a day 3. Clonazepam 1 mg once a day 4. Etc. L to 20 mg once a day 5. Mirapex 6. Furosemide 20 mg once a day 7. Fluoxetine 20 mg once a day 8. Cyclobenzaprine 10 mg 3 times a day 9. Neurontin 300 mg at bedtime During physical exam: GENERAL: A pleasant patient without any distress. VITAL SIGNS: BP 128/69, HR 59, RR 16 , weight 232.4, temperature 97.5, oxygen saturation at room air 98 % . HEENT: PERRLA, EOMI.low position of soft palate, Mallapati 4 . NECK: Supple. No JVD. LUNGS: Clear to percussion and to auscultation. Good air exchange. No wheezing or rhonchi. HEART: S1, S2 regular. ABDOMEN: Soft and nontender. Slightly obese EXTREMITIES: No clubbing or cyanosis. SURVEY WORKER: Awake, alert, and oriented x3. No focal deficit. Impressions: 1. Obstructive sleep apnea-hypopnea syndrome. Patient demonstrated great compliance with treatment, benefiting from treatment. 2. History of atrial fibrillation, no recent episodes. 3. Obesity. 4. Restless leg syndrome. 5. History of depression. 6. Status post UPPP and nasal surgery for obstructive sleep apnea hypopnea syndrome. 7. Status post bilateral shoulder surgery. 8. Status post left knee replacement. 9. Status post surgical treatment for carpal tunnel syndrome on the right side. 10. Status post back surgery and the level LIII-S1. 11. Status post left carotid endarterectomy. Plan: 1. Continue using PAP equipment every night for the whole night. 2. To change air filter at least 1-2 times per month. 3. PAP unit should stay lower then position of the head. 4. Advised patient to remove all remaining water from humidifier canister daily and make it dry after each usage. Refill canister with fresh distilled water before each usage. 5. Sleep hygiene with regular time in bed for at least 8 hours. 6. Precautions related to driving. No driving if feel any sleepiness. 7. I will maintain prescription for PAP supplies including mask, tube, filters. 8. Follow up visit in 6 months or earlier if patient has any problems. 9. Watching and losing weight. Thank you very much for allowing me to participate in the management of your patient. sIac Farfan MD, PhD, FAASM. Diplomat of [place] [employer], Sleep Medicine Board by [place] [employer] Healthcare Consultant of [facility] [place]
== END ==
LOC: SLEEP 16:14
PROVIDERS: ATTEND Internal Medicine
DX: G47.33 Obstructive sleep apnea (adult) (pediatric) (principal); Z99.89 Dependence on other enabling machines and devices; E66.9 Obesity, unspecified; Z98.890 Other specified postprocedural states; Z86.79 Personal history of other diseases of the circulatory system; Z86.59 Personal history of other mental and behavioral disorders; Z96.652 Presence of left artificial knee joint; Z88.1 Allergy status to other antibiotic agents; Z87.891 Personal history of nicotine dependence; Z88.8 Allergy status to other drugs, medicaments and biological substances; Z91.048 Other nonmedicinal substance allergy status
CPT/HCPCS: 99212

== ENCOUNTER → 2022-07-18 | Outpatient (CLI) | payer MEDICARE, OTHER ==
--- NOTE | 2022-07-18 08:17 | US ---
EXAMINATION TYPE: US duplex aorta DATE OF EXAM: 07/18/2022 COMPARISON: NONE CLINICAL HISTORY: Z13.6 SCREEN FOR AAA. Patient's mother had an AAA. Prior smoker x 15 years. Pt quit 30 years ago. Hypertension. TECHNIQUE: Multiple sonographic images of the abdominal aorta are obtained. FINDINGS: EXAM MEASUREMENTS: Abdominal Aorta: AP x Width Proximal: 3.2 x 2.5 cm Mid: 2.5 x 2.9 cm Distal: 2.1 x 2.5 cm Bifurcation: Obscured by gas. SUB ARC OPERATOR NOTES: Exam limited by body habitus Atherosclerotic changes. Proximal aorta appears aneurysmal. 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
== END | disposition home or self-care (01) ==
LOC: RADUSWWP 07:26
PROVIDERS: ATTEND Internal Medicine
DX: Z13.6 Encounter for screening for cardiovascular disorders (principal); I71.40 Abdominal aortic aneurysm, without rupture, unspecified; I10 Essential (primary) hypertension
CPT/HCPCS: 93979

== ENCOUNTER → 2022-11-17 | Outpatient (CLI) | payer MEDICARE, OTHER ==
[2022-11-17 14:17] VITALS: BP 154/80; PULSE 63; RESP 18; TEMP 98
--- NOTE | 2022-11-17 17:00 | P.PAINPG ---
PQRS Measure Charge Sheet Comment: HISTORY OF PRESENT ILLNESS: 72 yr old male as a referral from Dr Arreaga presents today w severe and chronic neck pain secondary to DDD, spondylosis and facet arthropathy without myelopathy for evaluation. Pt states pain level is at 6 /10 in intensity, constant, localized in the lower cervical spine, achy in character w shooting pain towards the BUEs. Pain is provoked by lifting. Pain is alleviated by medications (Neurontin, Flexeril), topicals, heat, home stretching regimen, repositioning and rest. PMH: aFib, CVA, GERD, HTN, Hyperlipidemia, OA, JERONIMO PSH: ACDF w Discectomy & Fusion C5-C6-C7 w interbody graft (2020), L Knee Replacement, BL Knee Arthroscopy, BL Shoulder Surgeries x25, Lumbar Hardware SH:Former tobacco user, No ETOH or illicit drug abuse FH: Mo- No Reported History All: See list Meds: See list REVIEW OF ORGAN SYSTEMS: CONSTITUTIONAL: No fevers or chills. No recent weight loss. NEUROLOGICAL: + numbness and tingling along the distal extremities. No seizure disorders or headaches. MUSCULOSKELETAL: + pain PSYCHIATRIC: Denies current depression or suicidal thoughts. Physical Examinations : Constitutional : Cooperative , not in acute distress . Neurologic : Cranial nerve II to XII intact. No focal neurological deficits. Psychiatric : alert & oriented x 3. Matching mood & appropriate affect. Judgment & insight intact. Musculoskeletal : Cervical Spine Motor strength in the deltoid and biceps: Normal right side. Normal Left side Motor strength biceps and the wrist extensors: Normal right side . Normal left side Motor strength in the triceps muscle: Normal right side. Normal left side Deep tendon reflexes: Normal at the biceps. Normal at Brachioradialis. Normal at triceps Vertebral body tenderness to deep palpation over C7 Cervical facet loading test: positive bilaterally Spurling test: positive bilaterally Neck distraction test: positive bilaterally Pham sign: positive bilaterally Lumbar spine Motor strength lower extremities ,thigh and legs 5/5 Right side , 5/5 Left side Deep tendon reflexes : Normal Knee Jerk. Normal Ankle Jerk Vertebral body tenderness over Lumbar facet Loading Test: positive Right / positive Left Range of motion of the lumbar spine Flexion 30 degrees, extension 10 degrees Straight Leg Raise test: Left/ Right positive at degree Christiano test: positive right / positive left. Severe tenderness over the Sacroiliac joint on the Right / Left sides Gaenslen test: positive bilaterally Seated flexion test: positive bakari aterally. Sacral spine : Severe tenderness over the Sacroiliac joint: right side / left side Range of motion: Flexion of the lumbar spine <60 degrees Range of motion: Extension of the lumbar spine <20 degrees Gaenslen's Test positive Guillermo's Test positive Christiano test: positive right side / left side Thigh Thrust Test Sacral Thrust Test Imaging: CT without contrast of the cervical spine from 12/09/21 reviewed Assessment/ Plan : Cervical DDD, cervical spondylosis Recommendation of DANE C7-T1 #1. May need a series of injections for optimal pain relief. Risks, benefits of procedure discussed and patient verbalized understanding. Admits to aspirin or anti- coagulant use or medical history of diabetes. Protocol for discontinuation/ continuation of medications tiffany procedure discussed. All questions answered. I have spent greater than 30 minutes on patient care today. Dr Enciso was available by phone for the evaluation of this patient. The time was used to review the medical records including relevant urine studies and Prescription history (MAPs), review of the available imaging, evaluation and examination of the patient, coordination of care with the medical staff and if applicable referring physicians, as well as creation of the medical record PQRS Narrative: Smoking Status Former smoker Home Medications: Ambulatory Orders Ascorbic Acid [Vitamin C] 500 mg PO DAILY 01/25/15 FLUoxetine HCL [Sarafem] 20 mg PO DAILY 01/25/15 Folic Acid 0.4 mg PO DAILY 01/25/15 Metoprolol Tartrate 100 mg PO BID 01/25/15 Multivitamins, Thera [Multivitamin (formulary)] 1 each PO DAILY 01/25/15 Omeprazole 40 mg PO DAILY 01/25/15 Pramipexole Di-HCl [Mirapex] 1.5 mg PO BID 01/25/15 Rivaroxaban [Xarelto] 20 mg PO HS 01/25/15 Vitamin E (Dl,Tocopheryl Acet) [Vitamin E (400 Iu = 180 mg)] 400 unit PO DAILY 01/25/15 clonazePAM [KlonoPIN] 1 mg PO HS 01/25/15 Doxycycline Hyclate 100 mg PO DAILY 12/23/16 Cyclobenzaprine [Flexeril] 10 mg PO TID 04/05/21 Calcium Carbonate/Vitamin D3 [Calcium 600-D3 20 mcg (800 Unit)] 1 each PO DAILY 10/24/21 Furosemide [Lasix] 20 mg PO DAILY 10/24/21 Gabapentin [Neurontin] 300 mg PO TID 10/24/21 Cyclobenzaprine [Flexeril] 10 mg PO TID 11/17/22 Docusate Sodium [Dok] 100 mg PO 11/17/22 Controlled Substance Measures - Controlled Substance Measures Is patient prescribed a controlled substance at discharge?: No
== END ==
LOC: PNWHC3 13:05
PROVIDERS: ATTEND Specialist
DX: M50.30 Other cervical disc degeneration, unspecified cervical region (principal); M47.812 Spondylosis without myelopathy or radiculopathy, cervical region; Z87.891 Personal history of nicotine dependence; I48.91 Unspecified atrial fibrillation; K21.9 Gastro-esophageal reflux disease without esophagitis; Z86.73 Personal history of transient ischemic attack (TIA), and cerebral infarction without residual deficits; I10 Essential (primary) hypertension; E78.5 Hyperlipidemia, unspecified; G47.33 Obstructive sleep apnea (adult) (pediatric); M19.90 Unspecified osteoarthritis, unspecified site; Z88.1 Allergy status to other antibiotic agents; Z88.3 Allergy status to other anti-infective agents; Z91.048 Other nonmedicinal substance allergy status
CPT/HCPCS: 99211

== ENCOUNTER 2022-11-23 14:09 | Emergency (ER) | payer MEDICARE, OTHER ==
[2022-11-23 14:33] VITALS: BP 119/61; PULSE 78
[2022-11-23] MEDS ORDERED: ACETAMINOPHEN TAB 500 MG TAB PO STA (15:26)
--- NOTE | 2022-11-23 15:28 | ED ---
General Adult HPI - General Chief complaint: Upper Respiratory Infection Stated complaint: Cough Time Seen by Provider: 11/23/22 14:32 Source: patient, RN notes reviewed Mode of arrival: wheelchair Limitations: no limitations - History of Present Illness Initial comments: Patient is a pleasant 72-year-old male presenting to the emergency department with concerns for cough. Onset of symptoms was 2-3 days ago. Patient days cough is dry nonproductive. Patient may have some minimal associated shortness of breath. Patient is having some fevers at home. No leg pain. No leg swelling. - Related Data Home Medications Medication Instructions Recorded Confirmed Ascorbic Acid [Vitamin C] 500 mg PO DAILY 01/25/15 11/17/22 FLUoxetine HCL [Sarafem] 20 mg PO DAILY 01/25/15 11/17/22 Folic Acid 0.4 mg PO DAILY 01/25/15 11/17/22 Metoprolol Tartrate 100 mg PO BID 01/25/15 11/17/22 Multivitamins, Thera [Multivitamin 1 each PO DAILY 01/25/15 11/17/22 (formulary)] Omeprazole 40 mg PO DAILY 01/25/15 11/17/22 Pramipexole Di-HCl [Mirapex] 1.5 mg PO BID 01/25/15 11/17/22 Rivaroxaban [Xarelto] 20 mg PO HS 01/25/15 11/17/22 Vitamin E (Dl,Tocopheryl Acet) 400 unit PO DAILY 01/25/15 11/17/22 [Vitamin E (400 Iu = 180 mg)] clonazePAM [KlonoPIN] 1 mg PO HS 01/25/15 11/17/22 Doxycycline Hyclate 100 mg PO DAILY 12/23/16 11/17/22 Cyclobenzaprine [Flexeril] 10 mg PO TID 04/05/21 11/17/22 Calcium Carbonate/Vitamin D3 1 each PO DAILY 10/24/21 11/17/22 [Calcium 600-D3 20 mcg (800 Unit)] Furosemide [Lasix] 20 mg PO DAILY 10/24/21 11/17/22 Gabapentin [Neurontin] 300 mg PO TID 10/24/21 11/17/22 Cyclobenzaprine [Flexeril] 10 mg PO TID 11/17/22 11/17/22 Docusate Sodium [Dok] 100 mg PO 11/17/22 Previous Rx's Medication Instructions Recorded Nirmatrelvir/Ritonavir [Paxlovid 3 each PO BID #30 each 11/23/22 300-100 mg Pack (Eua)] Allergies Allergy/AdvReac Type Severity Reaction Status Date / Time clindamycin Allergy Rash/Hives Verified 11/23/22 14:19 warfarin sodium Allergy Rash/Hives Verified 11/23/22 14:19 [From Coumadin] tape Allergy blister Uncoded 11/23/22 14:19 tegaderm Allergy blister Uncoded 11/23/22 14:19 Review of Systems ROS Statement: Those systems with pertinent positive or pertinent negative responses have been documented in the HPI. ROS Other: All systems not noted in ROS Statement are negative. Constitutional: Reports: as per HPI, fever, chills Eyes: Denies: eye pain ENT: Reports: congestion. Denies: ear pain Respiratory: Reports: as per HPI, cough Cardiovascular: Denies: chest pain Endocrine: Reports: fatigue Gastrointestinal: Denies: abdominal pain Genitourinary: Denies: urgency Musculoskeletal: Denies: back pain Skin: Denies: rash Neurological: Denies: weakness Past Medical History Past Medical History: Atrial Fibrillation, CVA/TIA, GERD/Reflux, Hyperlipidemia, Hypertension, Osteoarthritis (OA), Sleep Apnea/CPAP/BIPAP Additional Past Medical History / Comment(s): TIA., RLS, HX OF SHOULDER SURGERY WITH REJECTION & INFECTION-HARDWARE REMOVED AND UNABLE TO RAISE ARMS ABOVE SHOULDERS., BACK & NECK PAIN., SCHEDULED FOR NECK SURGERY IN OCTOBER., C-PAP MACHINE., SEE CARDIOLOGY H & P. History of Any Multi-Drug Resistant Organisms: MRSA Date of last positivie culture/infection: 07/14/14 MDRO Source:: rt shoulder Past Surgical History: Back Surgery, Cardiac Ablation, Joint Replacement, Orthopedic Surgery Additional Past Surgical History / Comment(s): ROSALBA KNEE ARTHROSCOPY., ROSALBA TOTAL KNEES, SEVERAL SHOULDER SURGERYS- TOTAL, REVERSE & REMOVAL OF HARDWARE., TORI IN BACK. Past Anesthesia/Blood Transfusion Reactions: No Reported Reaction Past Psychological History: No Psychological Hx Reported Smoking Status: Former smoker Past Alcohol Use History: None Reported Past Drug Use History: None Reported - Past Family History Mother Family Medical History: No Reported History General Exam Limitations: no limitations General appearance: alert, in no apparent distress Head exam: Present: normocephalic Eye exam: Present: normal appearance Neck exam: Present: normal inspection Respiratory exam: Present: rhonchi (Minimal left base). Absent: respiratory distress, wheezes Cardiovascular Exam: Present: regular rate, normal rhythm GI/Abdominal exam: Present: soft. Absent: tenderness Extremities exam: Present: normal inspection. Absent: pedal edema, calf tenderness Neurological exam: Present: alert Psychiatric exam: Present: normal affect, normal mood Skin exam: Present: normal color Course Vital Signs 11/23/22 11/23/22 14:14 14:25 Temperature 99.9 F H 102.8 F H Pulse Rate 86 78 Respiratory 20 Rate Blood Pressure 144/66 119/61 O2 Sat by Pulse 95 93 L Oximetry EKG Findings - EKG Results: EKG: interpreted by LEILANID, sinus rhythm, normal axis, normal QRS, normal ST/T Medical Decision Making - Medical Decision Making Was pt. sent in by a medical professional or institution (, PA, CLINICAL SERVICES MANAGER, urgent care, hospital, or usp...) When possible be specific @ -No Did you speak to anyone other than the patient for history (EMS, parent, family, police, friend...)? What history was obtained from this source @ - is present and helps confirm history Did you review nursing and triage notes (agree or disagree)? Why? @ -I reviewed and agree with nursing and triage notes Were old charts reviewed (outside hosp., previous admission, EMS record, old EKG, old radiological studies, urgent care reports/EKG's, usp records)? Report findings @ -No old charts were reviewed Differential Diagnosis (chest pain, altered mental status, abdominal pain women, abdominal pain men, vaginal bleeding, weakness, fever, dyspnea, syncope, headache, dizziness, GI bleed, back pain, seizure, CVA, palpatations, mental health)? @ -not applicable EKG interpreted by me (3pts min.). @ -As above X-rays interpreted by me (1pt min.). @ -Chest x-ray shows no acute process. CT interpreted by me (1pt min.). @ -None done U/S interpreted by me (1pt. min.). @ -None done What testing was considered but not performed or refused? (CT, X-rays, U/S, labs)? Why? @ -None What meds were considered but not given or refused? Why? @ -None Did you discuss the management of the patient with other professionals (professionals i.e. , PA, CLINICAL SERVICES MANAGER, lab, RT, psych nurse, social media strategist, picker, teacher, complaint investigations officer, rn case management)? Give summary @ -No Was smoking cessation discussed for >3mins.? @ -No Was critical care preformed (if so, how long)? @ -No Were there social determinants of health that impacted care today? How? (Homelessness, low income, unemployed, alcoholism, drug addiction, transportation, low edu. Level, literacy, decrease access to med. care, detention, rehab)? @ -No Was there de-escalation of care discussed even if they declined (Discuss DNR or withdrawal of care, Hospice)? DNR status @ -No What co-morbidities impacted this encounter? (DM, HTN, Smoking, COPD, CAD, Cancer, CVA, ARF, Chemo, Hep., AIDS, mental health diagnosis, sleep apnea, morbid obesity)? @ -None Was patient admitted / discharged? Hospital course, mention meds given and route, prescriptions, significant lab abnormalities, going to OR and other pertinent info. @ -Patient reevaluated and feeling somewhat better. Patient is updated on results and plan. Patiently discharge and is receptive to receiving paxlovid Undiagnosed new problem with uncertain prognosis? @ -No Drug Therapy requiring intensive monitoring for toxicity (Heparin, Nitro, Insulin, Cardizem)? @ -No Were any procedures done? @ -No Diagnosis/symptom? @ -COVID-19 infection Acute, or Chronic, or Acute on Chronic? @ -Acute Uncomplicated (without systemic symptoms) or Complicated (systemic symptoms)? @ -default Side effects of treatment? @ -No Exacerbation, Progression, or Severe Exacerbation? @ -No Poses a threat to life or bodily function? How? (Chest pain, [place], [place], pneumonia, PE, COPD, DKA, ARF, appy, cholecystitis, CVA, Diverticulitis, Homicidal, Suicidal, threat to staff... and all critical care pts) @ -No I did review medication interactions for pavlovid and patient will need to hold Xarelto. He and are specifically updated regarding this - Lab Data Lab Results 11/23/22 Range/Units 14:56 Influenza Type A (PCR) Not Detected (Not Detectd) Influenza Type B (PCR) Not Detected (Not Detectd) RSV (PCR) Not Detected (Not Detectd) SARS-CoV-2 (PCR) Detected A (Not Detectd) Disposition Clinical Impression: COVID-19 Disposition: HOME SELF-CARE Condition: Stable Instructions (If sedation given, give patient instructions): COVID-19 (Coronavirus Disease 2019) (ED) Additional Instructions: Please do follow-up to primary care physician in the next couple days for recheck. [id number] Tylenol or Motrin as needed for fever. Please take vitamin C, vitamin D, and zinc until better. Prescription has been sent to [facility]. Return for difficulty breathing, not tolerating fluids, worsening symptoms or other concerns. You will need to hold Anny nettles taking paxlovid Prescriptions: Nirmatrelvir/Ritonavir [Paxlovid 300-100 mg Pack (Eua)] 3 each PO BID #30 each Is patient prescribed a controlled substance at d/c from ED?: No Referrals: Juliano Arreaga MD [Primary Care Provider] - 1-2 days Time of Disposition: 16:16
[2022-11-23] MEDS ORDERED: IBUPROFEN 400 MG TAB PO STA (15:29)
--- NOTE | 2022-11-23 16:03 | XR ---
EXAMINATION TYPE: XR chest 2V DATE OF EXAM: 11/23/2022 COMPARISON: 04/17/2021 HISTORY: Cough and short of breath TECHNIQUE: 2 views FINDINGS: Heart and mediastinum are normal. Lungs are clear. Diaphragm is normal. Bony thorax is inta ct IMPRESSION: Normal chest. No change
[2022-11-23 16:45] VITALS: RESP 18; TEMP 99.1
== END 2022-11-23 16:45 | disposition home or self-care (01) ==
LOC: EC 14:09
DX: U07.1 COVID-19 (principal); I10 Essential (primary) hypertension; I48.91 Unspecified atrial fibrillation; K21.9 Gastro-esophageal reflux disease without esophagitis; M19.90 Unspecified osteoarthritis, unspecified site; E78.5 Hyperlipidemia, unspecified; Z87.891 Personal history of nicotine dependence; Z79.01 Long term (current) use of anticoagulants; Z79.899 Other long term (current) drug therapy; Z86.73 Personal history of transient ischemic attack (TIA), and cerebral infarction without residual deficits; Z88.1 Allergy status to other antibiotic agents; Z88.8 Allergy status to other drugs, medicaments and biological substances
CPT/HCPCS: 71046; 87636; 93005; 99284

== ENCOUNTER → 2023-01-19 | Outpatient (CLI) | payer MEDICARE, OTHER ==
--- NOTE | 2023-01-19 14:53 | CT ---
EXAMINATION TYPE: CT soft tissue neck w con DATE OF EXAM: 01/19/2023 COMPARISON: 12/09/2021 HISTORY: Pt had a mass removed from neck [id number] ago. Pt states his skin where the incision site was is tight and bothering him, it is marked by a radiopaque BB. CT DLP: 654 mGycm CONTRAST: CT scan of the neck is performed with IV Contrast, patient injected with 100cc mL of Isovue 300. Contrast enhanced CT of the neck was performed from the skull base through the lung apices. Probable inflammatory phlegmon described previously lower neck anteriorly along the anteromedial aspe ct of the inferior portion of the right sternocleidomastoid musculature appears to have been removed. The BB marker at the site of clinical concern to the left of midline demonstrates a small subcutaneo us nodular density measuring 5.5 mm could reflect a sebaceous cyst. There is mild skin thickening in this region. Correlate for cellulitis. AIRWAY: The supraglottic, glottic, and subglottic portions of the airway appear patent and free of mass. SALIVARY GLANDS: The submandibular and parotid glands are free of mass or inflammatory process. THYROID GLAND: No nodules or masses seen. LYMPH NODES: No adenopathy seen greater than 1cm. LUNG APICES: No nodule or mass is seen. OTHER: Vascular structures are patent. Severe degenerative changes cervical spine with postoperative changes noted. No abscess seen. IMPRESSION: BB marker at the site of clinical concern to the left of midline demonstrates a small subcutaneous no dular density measuring 5.5 mm could reflect a sebaceous cyst. There is mild skin thickening in this region. Correlate for cellulitis. This can be further evaluated with ultrasound.
== END | disposition home or self-care (01) ==
LOC: RADCTMAIN 12:57
PROVIDERS: ATTEND Otolaryngology
DX: E04.1 Nontoxic single thyroid nodule (principal); R23.4 Changes in skin texture
CPT/HCPCS: 82565; 84520; 70491; 36415; Q9967

== ENCOUNTER → 2023-02-16 | Outpatient (CLI) | payer MEDICARE, OTHER ==
--- NOTE | 2023-02-17 07:41 | US ---
EXAMINATION TYPE: US st tissue neck DATE OF EXAM: 02/16/2023 COMPARISON: CT 01/19/2023 CLINICAL INDICATION: Male, 72 years old with history of R22.1 Swelling, mass AND LUMP; Patient states having a cyst removed from neck about 8 months ago and is now feeling tightness in the area. TECHNIQUE: Ultrasound of the anterior neck. FINDINGS: Insole Beveler notes: Anterior neck scanned at patients area of concern with multiple images taken. No masses, lesions or fluid collection visualized at time of scan. IMPRESSION: The instructor of nursing scanned the anterior aspect of the neck along the area of concern. No discrete sonogr aphic abnormality is seen.
== END | disposition home or self-care (01) ==
LOC: RADUSWWP 15:58
PROVIDERS: ATTEND Otolaryngology
DX: R22.1 Localized swelling, mass and lump, neck (principal)
CPT/HCPCS: 76536

== ENCOUNTER → 2023-03-09 | Outpatient (CLI) | payer MEDICARE, OTHER ==
--- NOTE | 2023-03-09 11:58 | US ---
EXAMINATION TYPE: US carotid duplex BILAT DATE OF EXAM: 03/09/2023 COMPARISON: NONE CLINICAL INDICATION: Male, 72 years old with history of M50.90; Stenosis, pt states h/o edart 4 years ago, however unsure of which side TECHNIQUE: Carotid duplex ultrasound examination. Indirect Doppler criteria was utilized. FINDINGS: EXAM MEASUREMENTS: RIGHT: Peak Systolic Velocity (PSV) cm/sec ----- Right CCA: 93.0 ----- Right ICA: 101.1 ----- Right ECA: 135.0 ICA/CCA ratio: 1.1 RIGHT: End Diastole cm/sec ----- Right CCA: 23.7 ----- Right ICA: 22.0 ----- Right ECA: 18.7 LEFT: Peak Systolic Velocity (PSV) cm/sec ----- Left CCA: 99.1 ----- Left ICA: 115.5 ----- Left ECA: 203.5 ICA/CCA ratio: 1.2 LEFT: End Diastole cm/sec ----- Left CCA: 21.5 ----- Left ICA: 18.9 ----- Left ECA: 22.3 VERTEBRALS (direction of flow): Right Vertebral: Antegrade Left Vertebral: Antegrade Rhythm: Normal CHILD DEVELOPMENT PROFESSOR NOTES: Heterogeneous plaque bilaterally with elevated velocities bilateral ECA's IMPRESSION: Less than 50% stenosis of the bilateral carotid bifurcation. Criteria for Assigning % of Stenosis / Diameter reduction (Estimation based on the indirect measurements of the internal carotid artery velocities (ICA PSV). 1. Normal (no stenosis)=ICA PSV < 125 cm/s: ratio < 2.0: ICA EDV<40 cm/s. 2. Less than 50% stenosis=ICA PSV < 125 cm/s: ratio < 2.0: ICA EDV<40 cm/s. 3. 50 to 69% stenosis=ICA PSV of 125 to 230 cm/s: ration 2.0 ? 4.0: ICA EDV 40-100 cm/s. 4. Greater than 70% stenosis to near occlusion= ICA PSV > 230 cm/s: ratio > 4.0: ICA EDV > 100 cm/s. 5. Near occlusion= ICA PSV velocities may be low or undetectable: variable ratio and ICA EDV. 6. Total occlusion=unable to detect flow.
== END | disposition home or self-care (01) ==
LOC: RADUSWWP 10:54
PROVIDERS: ATTEND Internal Medicine
DX: I65.23 Occlusion and stenosis of bilateral carotid arteries (principal); M50.90 Cervical disc disorder, unspecified, unspecified cervical region
CPT/HCPCS: 93880

== ENCOUNTER → 2023-07-21 | Outpatient (CLI) | payer MEDICARE, OTHER ==
--- NOTE | 2023-07-21 08:37 | US ---
EXAMINATION TYPE: US duplex aorta DATE OF EXAM: 07/21/2023 COMPARISON: US 2021 CLINICAL INDICATION: Male, 72 years old with history of I71.40 AAA; Previous ultrasound (07/2022) eusebia wed mild proximal aneurysmal Aorta. Family hx AAA. TECHNIQUE: Multiple sonographic images of the abdominal aorta are obtained. FINDINGS: EXAM MEASUREMENTS: Abdominal Aorta: Proximal: 2.9 x 2.9 cm Mid: 2.1 x 1.7 cm Distal: 1.7 x 2.0 cm Bifurcation: Right illiac - 1.1 x 1.2 cm Left illiac - 0.8 x 1.1 cm GEOCHEMICAL MANAGER NOTES: Suboptimal due to overlying bowel gas and patient body habitus IMPRESSION: Mild ectasia of the proximal abdominal aorta measuring up to 2.9 cm.
== END | disposition home or self-care (01) ==
LOC: RADUSWWP 06:50
PROVIDERS: ATTEND Internal Medicine
DX: I71.40 Abdominal aortic aneurysm, without rupture, unspecified (principal); Z86.79 Personal history of other diseases of the circulatory system
CPT/HCPCS: 93979

== ENCOUNTER → 2023-10-09 | Outpatient (CLI) | payer MEDICARE, OTHER ==
--- NOTE | 2023-10-11 16:22 | PE ---
EXAMINATION TYPE: PET CT fusion skull to thigh DATE OF EXAM: 10/09/2023 COMPARISON: None Prior PET/CT: None at this location HISTORY: Prostate cancer TECHNIQUE: Following the intravenous administration of 6.95 mCi of gallium 68 Illucix PSMA, whole lluvia dy images are performed from the skull base to the midthigh. Images are reviewed on the computer in the coronal, axial, and sagittal planes. Reconstructed rotating images are created on [employer] and reviewed on the computer. A localization and attenuation correction CT is performed i n conjunction with the PET scan. DLP: 1019 mGycm SCAN: Initial FINDINGS: NECK: Normal uptake is seen in the salivary glands. THORAX: No suspicious uptake ABDOMEN: No abnormal uptake PELVIS: There is a focus of radiotracer in the posterior lateral right prostate with an SUV of 30.47. Findings can be compatible with the patient's prostate cancer. No additional suspicious uptake evident within the pelvis. There appears to be some normal excretion through the ureters nonsequential images. OSSEOUS STRUCTURES: No suspicious uptake LOCALIZATION CT: Coronary artery calcification is noted. Destructive changes are at the bilateral eusebia ulders. There is a cyst on the posterior medial inferior pole left kidney COMPARISON: None IMPRESSION: 1. Focal uptake within the posterior lateral right prostate can be compatible with the patient's repo rted prostate cancer. 2. No suspicious uptake to suggest metastatic disease.
== END | disposition home or self-care (01) ==
LOC: RADPETMAIN 10:16
PROVIDERS: ATTEND Urology
DX: C61 Malignant neoplasm of prostate (principal)
CPT/HCPCS: 78815; A9596

== ENCOUNTER → 2023-10-28 | Outpatient (CLI) | payer MEDICARE, OTHER ==
--- NOTE | 2023-10-28 13:45 | XR ---
EXAMINATION TYPE: XR chest 2V DATE OF EXAM: 10/28/2023 COMPARISON: 11/23/2022 INDICATION: Presurgical evaluation TECHNIQUE: Frontal and lateral views of the chest are obtained. FINDINGS: The heart size is normal. The pulmonary vasculature is normal. The lungs are clear. Degenerative changes of shoulders. IMPRESSION: 1. No acute pulmonary process.
[2023-10-28 18:15] LABS: Basophils # (A) 0.07 X 10*3/uL (0.00-0.10); Basophils % (A) 1.3 %; Eosinophils # (A) 0.35 X 10*3/uL (0.04-0.35); Eosinophils % (A) 6.3 %; HCT 46.6 % (39.6-50.0); HGB 16.3 g/dL (13.0-17.0); Lymphocytes # (A) 1.57 X 10*3/uL (0.90-5.00); MCH 31.8 pg (27.0-32.0); MCV 90.8 FL (80.0-97.0); Monocytes # (A) 0.45 X 10*3/uL (0.20-1.00); NRBC Per 100 WBC 0 X 10*3/uL (0.00-0.01); Neutrophils # (A) 3.14 X 10*3/uL (1.80-7.70); Platelet Count 151 X 10*3/uL (140-440); RBC 5.13 X 10*6/uL (4.40-5.60); RDW 12.9 % (11.5-14.5)
[2023-10-28 18:36] LABS: Blood Urea Nitrogen 20.4 mg/dL (9.0-27.0); Calcium 9.4 mg/dL (8.7-10.3); Carbon Dioxide 24.7 mmol/L (21.6-31.8); Chloride 107 mmol/L (96-109); Glucose 85 mg/dL (70-110); Potassium 4.5 mmol/L (3.5-5.5); Sodium 142 mmol/L (135-145)
[2023-10-29 02:33] LABS: Appearance,Urine Clear (Clear); Bilirubin,Urine Negative (Negative); Blood,Urine Negative (Negative); Color,Urine Yellow (Yellow); Ketones,Urine Negative (Negative); Nitrite,Urine Negative (Negative); PH, Urine 5.5; Specific Gravity,Urine 1.024 (1.001-1.030); Urobilinogen,Urine 0.2 E.U./DL
== END | disposition home or self-care (01) ==
LOC: LABPAT 13:18
PROVIDERS: ATTEND Urology
DX: Z01.812 Encounter for preprocedural laboratory examination (principal); C61 Malignant neoplasm of prostate
CPT/HCPCS: 71046; 80048; 81003; 85025; 86850; 86900; 86901; 87086

== ENCOUNTER 2023-11-04 10:23 | Day surgery (SDC) | payer MEDICARE, OTHER ==
[2023-10-29 15:30] VITALS: BMI 34.7
[~2023-11-04 10:23] MED LIST changes: -ALPRAZolam 0.25 MG TAB PO PRN; -ALPRAZolam 0.5 MG TAB PO PRN; -ASPIRIN 325 MG TAB PO STA; -HEPARIN SODIUM,PORCINE 10,000 UNIT in SODIUM CHLORIDE 0.9% 1,000 ML IRRIGATION PRN; -HEPARIN SODIUM,PORCINE 2,500 UNIT in SODIUM CHLORIDE 0.9% 250 ML IRRIGATION PRN; -NITROGLYCERIN SL TABS 0.4 MG TAB SUBLINGUAL PRN; -SODIUM CHLORIDE 0.9% 1,000 ML in EMPTY BAG 1 BAG IV SCH; +fentaNYL (PF) 50 MCG/ML 2 ML AMP IVP PRN
[2023-11-04] MEDS: LACTATED RINGERS 1,000 ML IV SCH (11:00)
[2023-11-04] MEDS: ONDANSETRON 4 MG/2 ML VIAL IVP ONE (11:25)
[2023-11-04] MEDS: DEXAMETHASONE SOD PHOSPHATE 4 MG/ML 1 ML VIAL IVP ONE (11:25)
[2023-11-04] MEDS: LIDOCAINE 1% (10MG/ML) FOR IV START INTRADERMA PRN (11:25)
[2023-11-04] MEDS: HEPARIN SODIUM,PORCINE 5,000 UNIT/ML 1 ML VIAL SQ PRN (11:45)
[2023-11-04] MEDS: MIDAZOLAM 2 MG/2 ML VIAL IV PRN (12:14)
[2023-11-04] MEDS ORDERED: PROPOFOL 10 MG/ML 20 ML VIAL IV ONE (12:41)
[2023-11-04] MEDS ORDERED: LIDOCAINE 1% INJ 10MG/ML (20 ML MDV) ONE (12:41)
[2023-11-04] MEDS ORDERED: ROCURONIUM 10 MG/ML (5 ML VIAL) IV ONE (12:41)
[2023-11-04] MEDS ORDERED: ALBUTEROL HFA INHALER INHALATION ONE (12:41)
[2023-11-04] MEDS ORDERED: SUGAMMADEX SODIUM 200 MG/2 ML SDV IV ONE (12:41)
[2023-11-04] MEDS ORDERED: fentaNYL (PF) 50 MCG/ML 2 ML AMP ONE (12:41)
[2023-11-04] MEDS ORDERED: SUCCINYLCHOLINE CHLORIDE 200 MG/10 ML VIAL IV ONE (12:41)
--- NOTE | 2023-11-04 12:42 | P.HPIHPCON ---
History of Present Illness H&P Date: 11/04/23 Chief Complaint: prostate cancer This is a 73-year-old male with history of intraductal carcinoma of the prostate. Discussed with him this is an aggressive variant of prostate cancer. Option of robotic prostatectomy versus radiation therapy was discussed with him in detail. He agreed to proceed with a robotic radical prostatectomy. Discussed risk which includes but not limited to bleeding, infection, urinary incontinence, erectile dysfunction. Discussed also risk of injury to nearby organs which includes but not limited to bladder, and rectum. Risk of anesthesia was also discussed with him in detail. Discussed this is an aggressive variant of cancer and he is at a higher risk of needing additional treatments and potential for cancer recurrence. He understood all the risk and agreed to proceed Consent for Procedure: I have explained the operation/procedure to the patient, including the risks, benefits, side effects, alternative therapies (including not receiving the proposed treatment or service), the likelihood of the patient achieving his/her goals, and potential recuperation problems for the procedure/sedation/analgesia, as well as any blood products, if indicated. I also explained to the patient the risks, benefits and side effects of the alternatives, as well as the risks related to not receiving the proposed procedure, care, treatment, or services. Past Medical History Past Medical History: Atrial Fibrillation, Cancer, CVA/TIA, GERD/Reflux, Hyperlipidemia, Hypertension, Osteoarthritis (OA), Sleep Apnea/CPAP/BIPAP Additional Past Medical History / Comment(s): TIA., RLS, HX OF SHOULDER SURGERY WITH REJECTION & INFECTION-HARDWARE REMOVED -UNABLE TO RAISE ARMS ABOVE SHOULDERS., BACK & NECK PAIN., STATES HEAD TILTS FORWARD SINCE CERVICAL SURGERY (? COLLAPSE)., C-PAP MACHINE., PROSTATE CANCER History of Any Multi-Drug Resistant Organisms: MRSA Date of last positivie culture/infection: 07/14/14 MDRO Source:: rt shoulder Past Surgical History: Back Surgery, Cardiac Ablation, Heart Catheterization, Joint Replacement, Orthopedic Surgery Additional Past Surgical History / Comment(s): ROSALBA KNEE ARTHROSCOPY., ROSALBA TOTAL KNEES, SEVERAL SHOULDER SURGERYS- TOTAL, REVERSE & REMOVAL OF HARDWARE., TORI IN BACK. , HEART CATH 10/25/21, CERVICAL DECOMPRESSION DISCECTOMY AND FUSION., CAROTID SURGERY. Past Anesthesia/Blood Transfusion Reactions: No Reported Reaction Past Psychological History: No Psychological Hx Reported Smoking Status: Former smoker Past Alcohol Use History: None Reported Additional Past Alcohol Use History / Comment(s): Quit smoking 40 yrs ago., hx of less than pack per day. Past Drug Use History: None Reported - Past Family History Mother Family Medical History: No Reported History Medications and Allergies Home Medications Medication Instructions Recorded Confirmed Type Ascorbic Acid [Vitamin C] 500 mg PO DAILY 01/25/15 11/04/23 History FLUoxetine HCL [Sarafem] 20 mg PO DAILY 01/25/15 11/04/23 History Folic Acid 0.4 mg PO DAILY 01/25/15 11/04/23 History Multivitamins, Thera [Multivitamin 1 each PO DAILY 01/25/15 11/04/23 History (formulary)] Omeprazole 40 mg PO DAILY 01/25/15 11/04/23 History Pramipexole Di-HCl [Mirapex] 1.5 mg PO BID 01/25/15 11/04/23 History Rivaroxaban [Xarelto] 20 mg PO HS 01/25/15 11/04/23 History Vitamin E (Dl,Tocopheryl Acet) 400 unit PO DAILY 01/25/15 11/04/23 History [Vitamin E (400 Iu = 180 mg)] clonazePAM [KlonoPIN] 1 mg PO HS 01/25/15 11/04/23 History Doxycycline Hyclate 100 mg PO DAILY 12/23/16 11/04/23 History Calcium Carbonate/Vitamin D3 1 each PO BID 10/24/21 11/04/23 History [Calcium 600-D3 20 mcg (800 Unit)] Furosemide [Lasix] 20 mg PO DAILY 10/24/21 11/04/23 History Gabapentin [Neurontin] 300 mg PO HS 10/24/21 11/04/23 History Cyclobenzaprine [Flexeril] 10 mg PO TID 11/17/22 11/04/23 History Docusate Sodium [Dok] 100 mg PO BID 11/17/22 11/04/23 History Metoprolol Tartrate [Lopressor] 50 mg PO BID 10/29/23 11/04/23 History Rosuvastatin Calcium 5 mg PO DAILY 10/29/23 11/04/23 History Allergies Allergy/AdvReac Type Severity Reaction Status Date / Time clindamycin Allergy Rash/Hives Verified 11/04/23 11:09 warfarin sodium Allergy Rash/Hives Verified 11/04/23 11:09 [From Coumadin] tape Allergy blister Uncoded 11/04/23 11:09 tegaderm Allergy blister Uncoded 11/04/23 11:09 Surgical - Exam Vital Signs Temp Pulse Resp BP Pulse Ox 97.8 F 72 16 188/93 96 11/04/23 11:24 11/04/23 11:24 11/04/23 11:24 11/04/23 11:24 11/04/23 11:24 - General no distress, no pain - Eyes normal ocular movement, no pale - ENT normal nares, normal mucosa - Respiratory normal expansion, normal respiratory effort - Abdomen Abdomen: soft, non tender - Psychiatric oriented to time, oriented to person, oriented to place Assessment and Plan Assessment: OR for robotic radical prostatectomy with pelvic lymph node dissection
[2023-11-04] MEDS ORDERED: ONDANSETRON 4 MG/2 ML VIAL IVP PRN (13:03)
[2023-11-04] MEDS: BUPIVACAINE (PF) 0.25% 30 ML VIAL SQ ONE (13:53)
--- NOTE | 2023-11-04 14:35 | P.OP ---
Date of Procedure: 11/04/23 Preoperative Diagnosis: Prostate cancer Postoperative Diagnosis: Same Procedure(s) Performed: Diagnostic laparoscopy, attempted robotic radical prostatectomy Implants: None Anesthesia: MIKE Surgeon: Jay Casillas Estimated Blood Loss (ml): 25 Pathology: none sent Condition: stable Disposition: PACU Indications for Procedure: This is a 73-year-old male with history of intraductal carcinoma of the prostate. Discussed with him this is an aggressive variant of prostate cancer. Option of robotic prostatectomy versus radiation therapy was discussed with him in detail. He agreed to proceed with a robotic radical prostatectomy. Discussed risk which includes but not limited to bleeding, infection, urinary incontinence, erectile dysfunction. Discussed also risk of injury to nearby organs which includes but not limited to bladder, and rectum. Risk of anesthesia was also discussed with him in detail. Discussed this is an aggressive variant of cancer and he is at a higher risk of needing additional treatments and potential for cancer recurrence. He understood all the risk and agreed to proceed Operative Findings: Patient unable to tolerate pneumoperitoneum and Trendelenburg Description of Procedure: After preoperative antibiotics were started, the patient was taken to the operating room. Anesthesia was induced and the patient was placed in a supine position, with adequate padding of the pressure points, shoulders, back, legs and arms. He was then prepped and draped in the standard fashion. A critical pause was performed using two patient identifiers. A 16F booker catheter was placed to gravity drainage. A pneumo-peritoneum was created with placement of a Veress needle to 20 mm Hg without complication, and a 8 Fr trocar was placed above the umbillicus. Under direct vision a 8mm robotic ports was placed lateral to each rectus slightly below the camera port. The left iliac fossa 8mm port was placed. The right speech and language assistant right iliac fossa 12mm port and right paramedian 5mm portwere placed. After the patient was placed in the trendelenberg position, the robot was then docked to the 8mm robotic ports and then each robotic arm and tower was checked in relation to the patient's legs and hands to avoid inadvertent compression. The peritoneal cavity was inspected. Patient had significant adhesion involving the left lower quadrant and the sigmoid colon which was taken down sharply robotically. There was no injury to the bowel during lysis of adhesions patient had poor tolerance to the pneumoperitoneum, at this point the pneumoperitoneum was decreased to 15 mm Hg, decreasing the pneumoperitoneum did help improve his respiratory status status initially. At this point an inverted U-shaped incision began laterally to the left medial umbilical ligament and extended high across the midline to the right umbilical ligament. The limbs of the "U" extended to the level of the vasa on both sides. We next developed the preperitoneal space and the space of Retzius. At this point patient continued to have low tidal volumes in the low 200s, at this point I decreased the pneumoperitoneum further to 12 without any improvement in his respiratory status. The degree of Trendelenburg was decreased all the way down to 20 without any significant improvement in his respiratory status. Patient also received breathing treatments, and the ET tube location was assessed which was in the correct location. At pneumoperitoneum of 12 and a 20 degree Trendelenburg there was very limited space within the pelvis to allow me to perform the procedure, in addition patient was not able to tolerate those setting to maintain adequate tidal volumes. At this point the robot was undocked and patient was taken out of Trendelenburg, he was able to maintain tidal volumes in the 600s, but as soon as any degree of Trendelenburg was applied there was significant decrease in his tidal volume. Given the patient inability to tolerate pneumoperitoneum and a Trendelenburg decision was made to abort the procedure. The ports were removed. All ports were closed with a subcuticular 4-0 monocryl and Dermabond. Sponge, instrument, and needle counts were correct at the end of the case x2. . He awoke without difficulty and was taken to the recovery room in stable condition
[2023-11-04] MEDS: LACTATED RINGERS 1,000 ML IV ONE (14:45)
[2023-11-04] MEDS ORDERED: IPRATROPIUM-ALBUTEROL 3 ML NEB ONE (14:55)
[2023-11-04] MEDS: IPRATROPIUM 0.5 MG/2.5 ML NEBU INHALATION ONE (14:59)
[2023-11-04] MEDS: HYDROmorphone 0.5 MG/0.5 ML SYRINGE IVP PRN (15:11)
[2023-11-04] MEDS: CYCLOBENZAPRINE 10 MG TAB PO SCH (18:18)
[2023-11-04] MEDS: D5-0.45% NACL WITH KCL 20MEQ/L 1,000 ML IV SCH (18:21)
[2023-11-04] MEDS: KETOROLAC 15 MG/ML 1 ML VIAL IVP SCH (18:33)
[2023-11-04] MEDS: GABAPENTIN 300 MG CAP PO SCH (20:57)
[2023-11-04] MEDS: clonazePAM 1 MG TAB PO SCH (20:57)
[2023-11-04] MEDS: METOPROLOL TARTRATE 50 MG TAB PO SCH (20:57)
[2023-11-04] MEDS: DOCUSATE 100 MG CAP PO SCH (20:57)
[2023-11-04] MEDS: HEPARIN SODIUM,PORCINE 5,000 UNIT/ML 1 ML VIAL SQ SCH (20:58)
[2023-11-04] MEDS: PRAMIPEXOLE 1 MG TAB PO SCH (20:58)
[2023-11-05 07:52] VITALS: RESP 18; TEMP 98
[2023-11-05] MEDS: HYDROcodone/APAP 5-325MG 1 EACH TAB PO PRN (09:01)
[2023-11-05] MEDS: ATORVASTATIN 10 MG TAB PO SCH (09:02)
[2023-11-05] MEDS: FUROSEMIDE 20 MG TAB PO SCH (09:02)
[2023-11-05] MEDS: FLUoxetine HCL 20 MG CAP PO SCH (09:02)
[2023-11-05 09:03] VITALS: BP 134/74; PULSE 64
[2023-11-05] MEDS: PANTOPRAZOLE 40 MG TABLET PO SCH (09:14)
[2023-11-05] MEDS: TAMSULOSIN 0.4 MG CAP.ER.24H PO SCH (10:53)
--- NOTE | 2023-11-05 15:16 | P.DS ---
Providers Attending physician: Jay Casillas MD Primary care physician: [facility] Course: This is a 73-year-old male with a history of prostate cancer. Underwent attempted robotic radical prostatectomy on November 03. Case was aborted due to inability to tolerate Trendelenburg pneumoperitoneum. Please see op note dated November 03 from full surgery details. Patient was admitted to the hospital postoperatively. He did have some difficulty voiding on postop day #1 required straight cath x 1, but subsequently was able to void without difficulties. He was discharged home on postop day #1 at time of discharge he was tolerating a diet, ambulating, and pain was controlled Plan - Discharge Summary Discharge Rx Participant: Yes New Discharge Prescriptions: New Ketorolac [Toradol] 10 mg PO Q6HR PRN #15 tab PRN Reason: Pain Tamsulosin [Flomax] 0.4 mg PO DAILY #30 cap No Action Vitamin E (Dl,Tocopheryl Acet) [Vitamin E (400 Iu = 180 mg)] 400 unit PO DAILY Folic Acid 0.4 mg PO DAILY Ascorbic Acid [Vitamin C] 500 mg PO DAILY clonazePAM [KlonoPIN] 1 mg PO HS Rivaroxaban [Xarelto] 20 mg PO HS Omeprazole 40 mg PO DAILY Pramipexole Di-HCl [Mirapex] 1.5 mg PO BID Multivitamins, Thera [Multivitamin (formulary)] 1 each PO DAILY FLUoxetine HCL [Sarafem] 20 mg PO DAILY Doxycycline Hyclate 100 mg PO DAILY Gabapentin [Neurontin] 300 mg PO HS Calcium Carbonate/Vitamin D3 [Calcium 600-D3 20 mcg (800 Unit)] 1 each PO BID Rosuvastatin Calcium 5 mg PO DAILY Metoprolol Tartrate [Lopressor] 50 mg PO BID Furosemide [Lasix] 20 mg PO DAILY Cyclobenzaprine [Flexeril] 10 mg PO TID Docusate Sodium [Dok] 100 mg PO BID Discharge Medication List Ascorbic Acid [Vitamin C] 500 mg PO DAILY 01/25/15 [History] FLUoxetine HCL [Sarafem] 20 mg PO DAILY 01/25/15 [History] Folic Acid 0.4 mg PO DAILY 01/25/15 [History] Multivitamins, Thera [Multivitamin (formulary)] 1 each PO DAILY 01/25/15 [History] Omeprazole 40 mg PO DAILY 05/28/15 [History] Pramipexole Di-HCl [Mirapex] 1.5 mg PO BID 01/25/15 [History] Rivaroxaban [Xarelto] 20 mg PO HS 01/25/15 [History] Vitamin E (Dl,Tocopheryl Acet) [Vitamin E (400 Iu = 180 mg)] 400 unit PO DAILY 01/25/15 [History] clonazePAM [KlonoPIN] 1 mg PO HS 01/25/15 [History] Doxycycline Hyclate 100 mg PO DAILY 12/23/16 [History] Calcium Carbonate/Vitamin D3 [Calcium 600-D3 20 mcg (800 Unit)] 1 each PO BID 10/24/21 [History] Furosemide [Lasix] 20 mg PO DAILY 10/24/21 [History] Gabapentin [Neurontin] 300 mg PO HS 10/24/21 [History] Cyclobenzaprine [Flexeril] 10 mg PO TID 11/17/22 [History] Docusate Sodium [Dok] 100 mg PO BID 11/17/22 [History] Metoprolol Tartrate [Lopressor] 50 mg PO BID 10/29/23 [History] Rosuvastatin Calcium 5 mg PO DAILY 10/29/23 [History] Ketorolac [Toradol] 10 mg PO Q6HR PRN #15 tab 11/04/23 [Rx] Tamsulosin [Flomax] 0.4 mg PO DAILY #30 cap 11/05/23 [Rx] Follow up Appointment(s)/Referral(s): Jay Casillas MD [STAFF PHYSICIAN] - 11/09/23 9:40 am (Needs to be seen thursday. ) Patient Instructions/Handouts: *Surgery [facility] - (Anesthesia) Discharge Instructions Outpatient Surgery, Booker Catheter Placement and Care (DC), Booker Catheter Removal (DC) Activity/Diet/Wound Care/Special Instructions: No heavy lifting or straining You can resume your Xarelto in 72 hours Please remove booker 4 hours before appointment Discharge Disposition: HOME SELF-CARE
== END 2023-11-05 13:05 | disposition home or self-care (01) ==
LOC: OR 10:23 → 4SSUR 17:19 → OR 11-05 13:05
PROVIDERS: ATTEND Urology
DX: Z53.8 Procedure and treatment not carried out for other reasons (principal); C61 Malignant neoplasm of prostate; I48.91 Unspecified atrial fibrillation; K21.9 Gastro-esophageal reflux disease without esophagitis; E78.5 Hyperlipidemia, unspecified; I10 Essential (primary) hypertension; M19.90 Unspecified osteoarthritis, unspecified site; G47.30 Sleep apnea, unspecified; Z98.890 Other specified postprocedural states; Z96.60 Presence of unspecified orthopedic joint implant; Z87.891 Personal history of nicotine dependence; Z79.899 Other long term (current) drug therapy; Z79.01 Long term (current) use of anticoagulants
CPT/HCPCS: 55867; S2900

== ENCOUNTER → 2023-11-25 | Outpatient (CLI) | payer MEDICARE, OTHER ==
--- NOTE | 2023-11-25 11:55 | MR ---
EXAMINATION TYPE: MR Prostate wo/w con DATE OF EXAM: 11/25/2023 7:22 AM COMPARISON: r. CLINICAL INDICATION:Male, 73 years old with history of C61 PROSTATE CANCER; Prior PET on PACS, intrad uctal prostate CA. current PSA 5.9, history of biopsy (report scanned) TECHNIQUE: Multi-planar, multi-sequence imaging of the pelvis is performed prior to and following the uncomplicated administration of bolus intravenous gadolinium. CONTRAST: 10 Gadavist Interpretive Criteria: PI-RADS v2.1 SERUM PSA: 5.9 SURGICAL PATHOLOGY: Positive biopsy on 09/01/2023. Right mid and right lateral prostate gland. FINDINGS: Prostatic dimensions: 4.7 x 5.2 x 4.2 cm. Ellipsoid Volume:53.75 (PSA density=0.11 ng/mL/mL) PROSTATE GLAND (Central and Transition Zones/CZ+TZ): Confluent low T2 signal area measuring 29 x 27 x 28 mm predominantly involving the right mid gland an d extending into the peripheral gland along the right this extends base to mid gland. This extends al zuleyma the capsule in this region off to 28 mm. Haziness of the capsule is seen in this region possibly representing microinvasion. (PI-RADS 5) SEMINAL VESICLES (SV): Symmetric and unremarkable. PERIPROSTATIC TISSUES: Unremarkable. LYMPH NODES: REMAINING PELVIS: Bladder wall is within normal limits given distention. No abnormal free or organized intrapelvic fluid collection. No pathologic bowel dilation or mural thickening. No hernia visualized OSSEOUS STRUCTURES: * Postsurgical changes of the spine with a surgical bed fluid collection measuring at least 5.7 x 1. 9 cm which is high T2 signal. * Indeterminate low T2/T1 signal lesion in the left pubic symphysis measuring 7 mm series 501 image 21. IMPRESSION: 1. Right prostate gland PI-RADS 5 lesion measuring 29 x 27 x 20 mm which involves both the central g land and peripheral zone and extends along the capsule. Microinvasion to the surrounding tissues is n ot excluded. No specific features for high-risk prostate cancer. Maximum PI-RADS score: 2. 2. Indeterminate left pubic symphysis bone marrow signal abnormality. Consider further evaluation PET/CT PSMA gallium-68 scan. 3. No definitive lymph nodes at this time.
== END | disposition home or self-care (01) ==
LOC: RADMRIMAIN 06:23
PROVIDERS: ATTEND Urology
DX: C61 Malignant neoplasm of prostate (principal)
CPT/HCPCS: 72197; A9585

== ENCOUNTER → 2024-02-03 | Outpatient (CLI) | payer MEDICARE, OTHER ==
[2024-02-03 16:25] LABS: ALT 21 U/L (10-49); AST 25 U/L (14-35); Albumin 4.3 g/dL (3.8-4.9); Albumin/Globulin Ratio 1.79 Ratio (1.60-3.17); Alkaline Phosphatase 83 U/L (41-126); BUN/Creat Ratio 15.25 Ratio (12.00-20.00); Blood Urea Nitrogen 18.3 mg/dL (9.0-27.0); Calcium 9.3 mg/dL (8.7-10.3); Carbon Dioxide 24.2 mmol/L (21.6-31.8); Chloride 106 mmol/L (96-109); Globulin 2.4 g/dL (1.6-3.3); Glucose 96 mg/dL (70-110); Magnesium 2.1 mg/dL (1.5-2.4); Potassium 4.5 mmol/L (3.5-5.5); Sodium 141 mmol/L (135-145); Total Bilirubin 1.8 mg/dL (0.3-1.2); Total Protein 6.7 g/dL (6.2-8.2)
[2024-02-03 16:26] LABS: Prostate Specific Antigen 0.04 ng/mL (0.000-6.500)
[2024-02-03 16:33] LABS: HCT 44.7 % (39.6-50.0); HGB 14.8 g/dL (13.0-17.0); MCH 31.1 pg (27.0-32.0); MCHC 33.1 g/dL (32.0-37.0); MCV 93.9 FL (80.0-97.0); Mean Platelet Volume 10.2 FL (9.5-12.2); NRBC Per 100 WBC 0 X 10*3/uL (0.00-0.01); Platelet Count 156 X 10*3/uL (140-440); RBC 4.76 X 10*6/uL (4.40-5.60); RDW 13.7 % (11.5-14.5); WBC 5.41 X 10*3/uL (4.50-10.00)
[2024-02-03 16:34] LABS: Basophils # (A) 0.09 X 10*3/uL (0.00-0.10); Basophils % (A) 1.7 %; Eosinophils # (A) 0.37 X 10*3/uL (0.04-0.35); Eosinophils % (A) 6.8 %; Lymphocytes # (A) 1.61 X 10*3/uL (0.90-5.00); Lymphocytes % (A) 29.8 %; Monocytes # (A) 0.51 X 10*3/uL (0.20-1.00); Monocytes % (A) 9.4 %; Neutrophils # (A) 2.82 X 10*3/uL (1.80-7.70); Neutrophils % (A) 52.1 %
[2024-02-04 10:16] LABS: Chol/HDL Ratio 3.65 Ratio; LDL Cholesterol,Calculated 82.2 mg/dL (0.0-131.0)
== END | disposition home or self-care (01) ==
LOC: LABWHC1 09:28
PROVIDERS: ATTEND Urology
DX: Z00.00 Encounter for general adult medical examination without abnormal findings (principal); I10 Essential (primary) hypertension; C61 Malignant neoplasm of prostate
CPT/HCPCS: 36415; 80053; 80061; 83735; 84153; 84443; 85025

== ENCOUNTER → 2024-02-24 | Outpatient (CLI) | payer MEDICARE, OTHER ==
--- NOTE | 2024-02-24 15:36 | US ---
EXAMINATION TYPE: US abdomen limited DATE OF EXAM: 02/24/2024 COMPARISON: PET CT 10/09/2023 CLINICAL INDICATION: Male, 73 years old with history of E80.6 OTHER DISORDERS OF BILIRUBIN METABOLISM ; TECHNIQUE: Multiple sonographic images of the right upper quadrant are obtained. FINDINGS: EXAM MEASUREMENTS: Liver Length: 17.4 cm Gallbladder Wall: 0.2 cm CBD: 0.2 cm Right Kidney: 8.6 x 5.7 x 6.0 cm PATIENT TRANSPORT ORDERLY NOTES: Suboptimal study due to large patient body habitus Pancreas: Tail obscured by overlying bowel gas Liver: Increase in size Gallbladder: No stones seen Evidence for sonographic Romo's sign: No CBD: wnl Right Kidney: wnl The visualized portions of pancreas unremarkable. Liver is mildly enlarged in size. No focal lesion i dentified. Noncirrhotic morphology. Gallbladder demonstrates no wall thickening, stones, or surroundi ng fluid. Negative sonographic Romo's sign. Common bile duct is within normal limits. No intrahepat ic biliary ductal dilatation. Right kidney is unremarkable without evidence for hydronephrosis, nephr olithiasis, or solid mass. IMPRESSION: Limited exam due to patient's body habitus. No ultrasound evidence for an acute process/abnormality within limitations.
== END | disposition home or self-care (01) ==
LOC: RADUSWWP 07:22
PROVIDERS: ATTEND Internal Medicine
DX: E80.6 Other disorders of bilirubin metabolism (principal)
CPT/HCPCS: 76705

== ENCOUNTER → 2024-03-22 | Outpatient (CLI) | payer MEDICARE, OTHER ==
--- NOTE | 2024-03-22 16:58 | US ---
EXAMINATION TYPE: US carotid duplex BILAT DATE OF EXAM: 03/22/2024 COMPARISON: Multiple, most recent 03/09/2023 CLINICAL INDICATION: Male, 73 years old with history of Z86.79 CAROTID ARTERY STENOSIS; Hx stroke wit h endartectomy right side; Dizziness TECHNIQUE: Carotid duplex ultrasound examination. Indirect Doppler criteria was utilized. FINDINGS: EXAM MEASUREMENTS: RIGHT: Peak Systolic Velocity (PSV) cm/sec ----- Right CCA: 106 ----- Right ICA: 101 ----- Right ECA: 143 ICA/CCA ratio: 0.9 RIGHT: End Diastole cm/sec ----- Right CCA: 24 ----- Right ICA: 22 ----- Right ECA: 18 LEFT: Peak Systolic Velocity (PSV) cm/sec ----- Left CCA: 89 ----- Left ICA: 115 ----- Left ECA: 64 ICA/CCA ratio: 1.0 LEFT: End Diastole cm/sec ----- Left CCA: 21 ----- Left ICA: 14 ----- Left ECA: 10 VERTEBRALS (direction of flow): Right Vertebral: Antegrade Left Vertebral: Antegrade Rhythm: Normal BUSINESS COORDINATOR NOTES: Intimal thickening and extensive plaque seen at bilateral CCA bulbs extending into ICA and ECAs. Elevated velocities seen within the right ECA. Unable to follow left ECA past origin. IMPRESSION: No evidence for hemodynamically significant stenosis. Criteria for Assigning % of Stenosis / Diameter reduction (Estimation based on the indirect measurements of the internal carotid artery velocities (ICA PSV). 1. Normal (no stenosis)=ICA PSV < 125 cm/s: ratio < 2.0: ICA EDV<40 cm/s. 2. Less than 50% stenosis=ICA PSV < 125 cm/s: ratio < 2.0: ICA EDV<40 cm/s. 3. 50 to 69% stenosis=ICA PSV of 125 to 230 cm/s: ration 2.0 ? 4.0: ICA EDV 40-100 cm/s. 4. Greater than 70% stenosis to near occlusion= ICA PSV > 230 cm/s: ratio > 4.0: ICA EDV > 100 cm/s. 5. Near occlusion= ICA PSV velocities may be low or undetectable: variable ratio and ICA EDV. 6. Total occlusion=unable to detect flow.
== END | disposition home or self-care (01) ==
LOC: RADUSWWP 15:54
PROVIDERS: ATTEND Internal Medicine
DX: R42 Dizziness and giddiness (principal); Z86.79 Personal history of other diseases of the circulatory system
CPT/HCPCS: 93880

== ENCOUNTER → 2024-05-09 | Outpatient (CLI) | payer MEDICARE, OTHER | END | disposition home or self-care (01) | LOC: LABWHC1 07:21 | PROVIDERS: ATTEND Urology | DX: C61 Malignant neoplasm of prostate (principal) | CPT/HCPCS: 36415; 84153 ==

== ENCOUNTER → 2024-07-11 | Outpatient (CLI) | payer MEDICARE, OTHER | END | disposition home or self-care (01) | LOC: LABWHC1 08:50 | PROVIDERS: ATTEND Urology | DX: C61 Malignant neoplasm of prostate (principal) | CPT/HCPCS: 36415; 84153 ==

== ENCOUNTER → 2024-08-18 | Outpatient (CLI) | payer MEDICARE, OTHER ==
--- NOTE | 2024-08-18 09:52 | US ---
EXAMINATION TYPE: US Aorta Screening DATE OF EXAM: 08/18/2024 COMPARISON: CLINICAL INDICATION: Male, 73 years old with history of I71.40 ABD AORTIC ANEURYSM; Ectatic Ao. No h x AAA. Family hx AAA. HTN- on meds. TECHNIQUE: Multiple sonographic images of the abdominal aorta are obtained with grayscale and color D oppler imaging. FINDINGS: EXAM MEASUREMENTS: Abdominal Aorta: Proximal: 2.6 x 2.9 cm Mid: Not visualized due to overlying bowel gas Distal: 2.4 x 2.4 cm Bifurcation: Right Iliac: 0.9 x 1.3 cm Left Iliac: 1.1 x 1.1 cm FIRMWARE ENGINEER NOTES: No AAA visualized at time of scan. Ectatic Ao seen proximal. Limited due to servando l gas and body habitus. IMPRESSION: Aortic ectasia or borderline aneurysm measuring 2.9 cm in maximal dimension. Note the mid abdominal a satya was not visualized due to overlying bowel gas. [facility], , 08/18/2024 9:50 AM
== END | disposition home or self-care (01) ==
LOC: RADUSWWP 07:21
PROVIDERS: ATTEND Internal Medicine
DX: I71.40 Abdominal aortic aneurysm, without rupture, unspecified (principal)
CPT/HCPCS: 76706

== ENCOUNTER → 2024-10-24 | Outpatient (CLI) | payer MEDICARE, OTHER | END | disposition home or self-care (01) | LOC: LABWHC1 09:50 | PROVIDERS: ATTEND Radiology Radiation Oncology | DX: C61 Malignant neoplasm of prostate (principal); C77.5 Secondary and unspecified malignant neoplasm of intrapelvic lymph nodes | CPT/HCPCS: 36415; 84153 ==

== ENCOUNTER → 2024-10-28 | Outpatient (CLI) | payer MEDICARE, OTHER ==
--- NOTE | 2024-10-28 12:42 | XR ---
EXAMINATION TYPE: XR chest 2V DATE OF EXAM: 10/28/2024 11:24 AM COMPARISON: 10/28/2023 CLINICAL INDICATION: Male, 74 years old with history of R05.9 Cough, extreme shortness of breath TECHNIQUE: XR chest 2V view(s) obtained. FINDINGS: The heart size is normal. The pulmonary vasculature is normal. The lungs are clear. Degenerative changes and postsurgical changes are at the bilateral shoulders. IMPRESSION: 1. No acute pulmonary process to account for severe shortness of breath. [facility], , 10/28/2024 12:31 PM
== END | disposition home or self-care (01) ==
LOC: RADXRMAIN 11:08
PROVIDERS: ATTEND Family Medicine
DX: R05.9 Cough, unspecified (principal)
CPT/HCPCS: 71046

== ENCOUNTER → 2024-11-28 | Outpatient (CLI) | payer MEDICARE, OTHER ==
[2024-11-28 16:46] LABS: Appearance,Urine Clear (Clear); Bilirubin,Urine Negative (Negative); Blood,Urine Negative (Negative); Color,Urine Yellow (Yellow); Ketones,Urine Negative (Negative); Nitrite,Urine Negative (Negative); PH, Urine 7.5; Specific Gravity,Urine 1.002 (1.001-1.030); Urobilinogen,Urine 0.2 E.U./DL
== END | disposition home or self-care (01) ==
LOC: LABWHC1 11:45
PROVIDERS: ATTEND Radiology Radiation Oncology
DX: C61 Malignant neoplasm of prostate (principal); C77.5 Secondary and unspecified malignant neoplasm of intrapelvic lymph nodes
CPT/HCPCS: 81003; 87086

== ENCOUNTER → 2025-02-13 | Outpatient (CLI) | payer MEDICARE, OTHER ==
[2025-02-13 10:30] LABS: Testosterone <10.00 ng/dL (86.98-780.10)
[2025-02-13 11:17] LABS: Prostate Specific Antigen <0.01 ng/mL (0.000-6.500)
== END | disposition home or self-care (01) ==
LOC: LABWHC1 07:34
PROVIDERS: ATTEND Urology
DX: C61 Malignant neoplasm of prostate (principal)
CPT/HCPCS: 36415; 84153; 84403

== ENCOUNTER → 2025-03-06 | Outpatient (CLI) | payer MEDICARE, OTHER ==
--- NOTE | 2025-03-06 10:46 | US ---
EXAMINATION TYPE: US venous doppler duplex LE BI DATE OF EXAM: 03/06/2025 10:35 AM COMPARISON: NONE CLINICAL INDICATION: Male, 74 years old with history of R60.9 EDEMA; Pt states swelling and redness to legs, pt currently on blood thinners for A-fib, Pain TECHNIQUE: The lower extremity deep venous system is examined utilizing real time linear array sonog jacquelyn with graded compression, color doppler sonography, and spectral doppler. SIDE PERFORMED: Bilateral FINDINGS: VESSELS IMAGED: Common Femoral Vein Deep Femoral Vein Greater Saphenous Vein * Femoral Vein Popliteal Vein Small Saphenous Vein * Proximal Calf Veins (* superficial vessels) Right Leg: Negative for DVT, Color Doppler imaging shows patency of the vessels. Spectral waveforms are within normal limits. Left Leg: Negative for DVT, Color Doppler imaging shows patency of the vessels. Spectral waveforms a re within normal limits. IMPRESSION: No ultrasound evidence for deep venous thrombosis. [facility], , 03/06/2025 10:44 AM
== END | disposition home or self-care (01) ==
LOC: RADUSWWP 09:57
PROVIDERS: ATTEND Internal Medicine
DX: R60.0 Localized edema (principal); I48.91 Unspecified atrial fibrillation; Z79.01 Long term (current) use of anticoagulants
CPT/HCPCS: 93970

== ENCOUNTER 2025-03-07 11:02 | Emergency (ER) | payer MEDICARE, OTHER ==
[2025-03-07 11:13] VITALS: BP 155/69; PULSE 56; RESP 20; TEMP 97.9
--- NOTE | 2025-03-07 11:39 | ED ---
General Adult HPI - General Chief complaint: Skin/Abscess/Foreign Body Stated complaint: Cellulitis Time Seen by Provider: 03/07/25 11:14 Source: patient, RN notes reviewed Mode of arrival: ambulatory Limitations: no limitations - History of Present Illness Initial comments: 74-year-old male presents to the emergency department for evaluation of right l ower extremity redness and swelling. He noticed this 4 to 5 days ago. He states that it has gotten worse. He has been on clindamycin and has taken 5 doses thus far. He states that that seems to be worsening. Denies any fever, chills. He does report having outpatient Dopplers of bilateral lower extremities performed yesterday with no evidence of DVT. - Related Data Home Medications Medication Instructions Recorded Confirmed Ascorbic Acid [Vitamin C] 500 mg PO DAILY 01/25/15 11/04/23 FLUoxetine HCL [Sarafem] 20 mg PO DAILY 01/25/15 11/04/23 Folic Acid 0.4 mg PO DAILY 01/25/15 11/04/23 Multivitamins, Thera [Multivitamin 1 each PO DAILY 01/25/15 11/04/23 (formulary)] Omeprazole 40 mg PO DAILY 01/25/15 11/04/23 Pramipexole Di-HCl [Mirapex] 1.5 mg PO BID 01/25/15 11/04/23 Rivaroxaban [Xarelto] 20 mg PO HS 01/25/15 11/04/23 Vitamin E (Dl,Tocopheryl Acet) 400 unit PO DAILY 01/25/15 11/04/23 [Vitamin E (400 Iu = 180 mg)] clonazePAM [KlonoPIN] 1 mg PO HS 01/25/15 11/04/23 Doxycycline Hyclate 100 mg PO DAILY 12/23/16 11/04/23 Calcium Carbonate/Vitamin D3 1 each PO BID 10/24/21 11/04/23 [Calcium 600-D3 20 mcg (800 Unit)] Furosemide [Lasix] 20 mg PO DAILY 10/24/21 11/04/23 Gabapentin [Neurontin] 300 mg PO HS 10/24/21 11/04/23 Cyclobenzaprine [Flexeril] 10 mg PO TID 11/17/22 11/04/23 Docusate Sodium [Dok] 100 mg PO BID 11/17/22 11/04/23 Metoprolol Tartrate [Lopressor] 50 mg PO BID 10/29/23 11/04/23 Rosuvastatin Calcium 5 mg PO DAILY 10/29/23 11/04/23 Previous Rx's Medication Instructions Recorded Ketorolac [Toradol] 10 mg PO Q6HR PRN #15 tab 11/04/23 Tamsulosin [Flomax] 0.4 mg PO DAILY #30 cap 11/05/23 Allergies Allergy/AdvReac Type Severity Reaction Status Date / Time clindamycin Allergy Rash/Hives Verified 11/04/23 11:09 warfarin sodium Allergy Rash/Hives Verified 11/04/23 11:09 [From Coumadin] tape Allergy blister Uncoded 11/04/23 11:09 tegaderm Allergy blister Uncoded 11/04/23 11:09 Review of Systems ROS Statement: Those systems with pertinent positive or pertinent negative responses have been documented in the HPI. ROS Other: All systems not noted in ROS Statement are negative. Past Medical History Past Medical History: Atrial Fibrillation, Atrial Flutter, CVA/TIA, GERD/Reflux, Hyperlipidemia, Hypertension, Osteoarthritis (OA), Sleep Apnea/CPAP/BIPAP Additional Past Medical History / Comment(s): TIA., RLS, HX OF SHOULDER SURGERY WITH REJECTION & INFECTION-HARDWARE REMOVED AND UNABLE TO RAISE ARMS ABOVE SHOULDERS., BACK & NECK PAIN., SCHEDULED FOR NECK SURGERY IN OCTOBER., C-PAP MACHINE., SEE CARDIOLOGY H & P. History of Any Multi-Drug Resistant Organisms: MRSA Date of last positivie culture/infection: 07/14/14 MDRO Source:: rt shoulder Past Surgical History: Back Surgery, Cardiac Ablation, Joint Replacement, Orthopedic Surgery Additional Past Surgical History / Comment(s): heart ablation Past Anesthesia/Blood Transfusion Reactions: No Reported Reaction Past Psychological History: No Psychological Hx Reported Smoking Status: Former smoker Past Alcohol Use History: None Reported Past Drug Use History: None Reported - Past Family History Mother Family Medical History: No Reported History General Exam Limitations: no limitations General appearance: alert, in no apparent distress Head exam: Present: atraumatic, normocephalic, normal inspection Eye exam: Present: normal appearance, PERRL, EOMI. Absent: scleral icterus, conjunctival injection, periorbital swelling Respiratory exam: Present: normal lung sounds bilaterally. Absent: respiratory distress, wheezes, rales, rhonchi, stridor Cardiovascular Exam: Present: regular rate, normal rhythm, normal heart sounds. Absent: systolic murmur, diastolic murmur, rubs, gallop, clicks Extremities exam: Present: full ROM, tenderness, normal capillary refill, pedal edema, other (Bilateral lower extremity erythema and edema, worse on the right, DP and PT pulses 2+ bilaterally). Absent: joint swelling, calf tenderness Neurological exam: Present: alert, oriented X3 Psychiatric exam: Present: normal affect, normal mood Skin exam: Present: warm, dry, intact, erythema. Absent: normal color, rash Course Vital Signs 03/07/25 11:10 Temperature 97.9 F Pulse Rate 56 L Respiratory 20 Rate Blood Pressure 155/69 O2 Sat by Pulse 98 Oximetry Medical Decision Making - Medical Decision Making Was pt. sent in by a medical professional or institution ([facility] Whelan, REFERRAL CLERK, urgent care, hospital, or halfway...) When possible be specific @ -[No] Did you speak to anyone other than the patient for history (EMS, parent, family, police, friend...)? What history was obtained from this source @ -[No] Did you review nursing and triage notes (agree or disagree)? Why? @ -[I reviewed and agree with nursing and triage notes] Were old charts reviewed (outside hosp., previous admission, EMS record, old EKG, old radiological studies, urgent care reports/EKG's, halfway records)? Report findings @ -I reviewed the Doppler ultrasounds from yesterday of bilateral lower extremities revealing no evidence of DVT Differential Diagnosis (chest pain, altered mental status, abdominal pain women, abdominal pain men, vaginal bleeding, weakness, fever, dyspnea, syncope, headache, dizziness, GI bleed, back pain, seizure, CVA, palpatations, mental health, musculoskeletal)? @ -Differential Musculoskeletal Muscular strain, contusion, ligament sprain, fracture, arthritis, septic arthritis, bursitis, cellulitis, muscle spasm, nerve compression, DVT, arterial occlusion, herpes zoster, electrolyte abnormality, tumor.... This is not meant to be in all inclusive list EKG interpreted by me (3pts min.). @ -None X-rays interpreted by me (1pt min.). @ -[None done] CT interpreted by me (1pt min.). @ -[None done] U/S interpreted by me (1pt. min.). @ -[None done] What testing was considered but not performed or refused? (CT, X-rays, U/S, labs)? Why? @ -[None] What meds were considered but not given or refused? Why? @ -[None] Did you discuss the management of the patient with other professionals (professionals i.e. DrChristian, PA, REFERRAL CLERK, lab, RT, psych nurse, social work specialist, payroll technician, teacher, credit compliance officer, casey saw operator)? Give summary @ -[No] Was smoking cessation discussed for >3mins.? @ -[No] Was critical care preformed (if so, how long)? @ -[No] Were there social determinants of health that impacted care today? How? (Homelessness, low income, unemployed, alcoholism, drug addiction, transportation, low edu. Level, literacy, decrease access to med. care, [facility], rehab)? @ -[No] Was there de-escalation of care discussed even if they declined (Discuss DNR or withdrawal of care, Hospice)? DNR status @ -[No] What co-morbidities impacted this encounter? (DM, HTN, Smoking, COPD, CAD, Cancer, CVA, ARF, Chemo, Hep., AIDS, mental health diagnosis, sleep apnea, morbid obesity)? @ -[None] Was patient admitted / discharged? Hospital course, mention meds given and route, prescriptions, significant lab abnormalities, going to OR and other pertinent info. @ -[hospital course] Undiagnosed new problem with uncertain prognosis? @ -[No] Drug Therapy requiring intensive monitoring for toxicity (Heparin, Nitro, Ins ulin, Cardizem)? @ -[No] Were any procedures done? @ -[No] Diagnosis/symptom? @ -[default] Acute, or Chronic, or Acute on Chronic? @ -[default] Uncomplicated (without systemic symptoms) or Complicated (systemic symptoms)? @ -[default] Side effects of treatment? @ -[No] Exacerbation, Progression, or Severe Exacerbation? @ -[No] Poses a threat to life or bodily function? How? (Chest pain, USA, OR, pneumonia, PE, COPD, DKA, ARF, appy, cholecystitis, CVA, Diverticulitis, Homicidal, Suicidal, threat to staff... and all critical care pts) @ -[No] - Lab Data Result diagrams: 03/07/25 12:25 03/07/25 12:25 Lab Results 03/07/25 03/07/25 03/07/25 Range/Units 12:25 12:25 12:25 WBC 4.18 L (4.50-10.00) 10*3/uL RBC 3.50 L (4.40-5.60) 10*6/uL Hgb 11.4 L (13.0-17.0) g/dL Hct 33.3 L (39.6-50.0) % MCV 95.1 (80.0-97.0) fL MCH 32.6 H (27.0-32.0) pg MCHC 34.2 (32.0-37.0) g/dL Plt Count 128 L (140-440) 10*3/uL MPV 8.9 L (9.5-12.2) fL Immature Gran % (Auto) 0 % Neutrophils % 69.9 % Lymphocytes % 12.7 % Monocytes % 9.8 % Eosinophils % 6.9 % Basophils % 0.7 % Immature Gran # 0.00 (0.00-0.04) 10*3/uL Neutrophils # 2.92 (1.80-7.70) 10*3/uL Lymphocytes # 0.53 L (0.90-5.00) 10*3/uL Monocytes # 0.41 (0.20-1.00) 10*3/uL Eosinophils # 0.29 (0.04-0.35) 10*3/uL Basophils # 0.03 (0.00-0.10) 10*3/uL Sodium 140 (137-145) mmol/L Potassium 4.2 (3.5-5.1) mmol/L Chloride 105 (98-107) mmol/L Carbon Dioxide 27 (22-30) mmol/L Anion Gap 8 mmol/L BUN 19 (9-20) mg/dL Creatinine 0.85 (0.66-1.25) mg/dL Est GFR (CKD-EPI)AfAm >90 (>60 ml/min/1.73 sqM) Est GFR (CKD-EPI)NonAf 86 (>60 ml/min/1.73 sqM) Glucose 101 H (74-99) mg/dL Plasma Lactic Acid Preston 1.0 (0.7-2.0) mmol/L Calcium 8.9 (8.4-10.2) mg/dL Total Bilirubin 1.3 (0.2-1.3) mg/dL AST 28 (17-59) U/L ALT 20 (4-49) U/L Alkaline Phosphatase 76 (38-126) U/L C-Reactive Protein 1.4 H (<1.0) mg/dL Total Protein 6.3 (6.3-8.2) g/dL Albumin 3.6 (3.5-5.0) g/dL Disposition Clinical Impression: Cellulitis Disposition: HOME SELF-CARE Condition: Stable Instructions (If sedation given, give patient instructions): Cellulitis (ED) Additional Instructions: Continue taking your antibiotics as prescribed. Follow-up with your doctor. Return to the emergency department for new or worsening symptoms as we discussed. Is patient prescribed a controlled substance at d/c from ED?: No Referrals: Juliano Arreaga DO [Primary Care Provider] - 1-2 days
[2025-03-07 12:32] LABS: Basophils # (A) 0.03 10*3/uL (0.00-0.10); Basophils % (A) 0.7 %; Eosinophils # (A) 0.29 10*3/uL (0.04-0.35); Eosinophils % (A) 6.9 %; HCT 33.3 % (39.6-50.0); HGB 11.4 g/dL (13.0-17.0); Lymphocytes # (A) 0.53 10*3/uL (0.90-5.00); Lymphocytes % (A) 12.7 %; MCH 32.6 pg (27.0-32.0); MCHC 34.2 g/dL (32.0-37.0); MCV 95.1 fL (80.0-97.0); Monocytes # (A) 0.41 10*3/uL (0.20-1.00); Monocytes % (A) 9.8 %; Neutrophils # (A) 2.92 10*3/uL (1.80-7.70); Neutrophils % (A) 69.9 %; Platelet Count 128 10*3/uL (140-440); RBC 3.50 10*6/uL (4.40-5.60); RDW 13.3 % (11.5-14.5); WBC 4.18 10*3/uL (4.50-10.00)
[2025-03-07 12:45] LABS: ALT 20 U/L (4-49); AST 28 U/L (17-59); African American GFR (CKD) >90 (>60 ml/min/1.73 sqM); Albumin 3.6 g/dL (3.5-5.0); Alkaline Phosphatase 76 U/L (38-126); Anion Gap 8 mmol/L; Blood Urea Nitrogen 19 mg/dL (9-20); Calcium 8.9 mg/dL (8.4-10.2); Carbon Dioxide 27 mmol/L (22-30); Chloride 105 mmol/L (98-107); Glucose 101 mg/dL (74-99); Non-African American GFR(CKD) 86 (>60 ml/min/1.73 sqM); Potassium 4.2 mmol/L (3.5-5.1); Sodium 140 mmol/L (137-145); Total Protein 6.3 g/dL (6.3-8.2)
== END 2025-03-07 14:04 | disposition home or self-care (01) ==
LOC: EC 11:02
DX: L03.115 Cellulitis of right lower limb (principal); Z87.891 Personal history of nicotine dependence; Z88.1 Allergy status to other antibiotic agents; Z88.8 Allergy status to other drugs, medicaments and biological substances
CPT/HCPCS: 36415; 80053; 83605; 85025; 86140; 99283

== ENCOUNTER → 2025-03-07 | Outpatient (CLI) | payer MEDICARE, OTHER | END | disposition home or self-care (01) | LOC: CPPFTMAIN 07:16 | PROVIDERS: ATTEND Internal Medicine | DX: J45.909 Unspecified asthma, uncomplicated (principal); Z88.8 Allergy status to other drugs, medicaments and biological substances; Z88.1 Allergy status to other antibiotic agents; Z91.048 Other nonmedicinal substance allergy status; Z87.891 Personal history of nicotine dependence | CPT/HCPCS: 94060; 94726; 94729 ==